=== PATIENT | male | born 1960 | race Caucasian/White ===

== ENCOUNTER 2018-05-16 15:56 | Inpatient (IN) | payer BC ==
[~2018-05-16] VITALS: Ht 180.3 cm; Wt 81.2 kg
[2018-05-16] MEDS ORDERED: IV NORMAL SALINE 1000ML BAG 1,000 ML IV ONE (16:30)
[2018-05-16 16:34] LABS: BASO % 1 % (0-3); EOS # 0.1 x10^3/uL (0.0-0.7); EOS % 1 % (0-3); HEMATOCRIT 44.6 % (39.0-53.0); LYMPH # 3.4 x10^3/uL (1.0-4.8); LYMPH % 42 % (24-48); MEAN CORPUSCULAR HEMOGLOBIN 31 pg (25-35); MEAN CORPUSCULAR HGB CONC 34 g/dL (31-37); MEAN CORPUSCULAR VOLUME 93 fL (79-100); MONO # 0.5 x10^3/uL (0.0-1.1); MONO % 6 % (0-9); NEUT # 4.2 x10^3uL (1.8-7.7); NEUT % 51 % (31-73); PLATELET COUNT 189 x10^3/uL (140-400); RED BLOOD COUNT 4.79 x10^6/uL (4.30-5.70); RED CELL DISTRIBUTION WIDTH 13.3 % (11.5-14.5); WHITE BLOOD COUNT 8.2 x10^3/uL (4.0-11.0)
--- NOTE | 2018-05-16 16:47 | RAD ---
EXAM: Head CT without contrast. HISTORY: Dizziness. Hyperglycemia. Mental status changes. TECHNIQUE: Computed tomographic images of the head were obtained without contrast. *One or more of the following individualized dose reduction techniques were utilized for this examination: 1. Automated exposure control. 2. Adjustment of the mA and/or kV according to patient size. 3. Use of iterative reconstruction technique. COMPARISON: 07/31/2010. FINDINGS: There is no acute or subacute extra-axial or intraparenchymal hemorrhage. There is no mass effect or midline shift. There is no hydrocephalus. There are areas of decreased attenuation within the cerebral white matter, nonspecific and likely related to chronic small vessel disease. The visualized portions of the orbits, paranasal sinuses and mastoid air cells are unremarkable. No suspicious calvarial lesion is seen. IMPRESSION: No acute intercranial finding. Note is made that MRI is more sensitive for acute infarction. Electronically signed by: Shawna Chandler MD (05/16/2018 4:44 PM) [facility]
[2018-05-16 17:05] LABS: CALCIUM 8.5 mg/dL (8.5-10.1); CREATININE 0.8 mg/dL (0.7-1.3); GFR 98.6; POTASSIUM 3.6 mmol/L (3.5-5.1)
[2018-05-16 17:10] LABS: ALBUMIN 3.7 g/dL (3.4-5.0); ALBUMIN/GLOBULIN RATIO 1.1 (1.0-1.7); CREATINE KINASE 70 U/L (39-308); TOTAL BILIRUBIN 0.4 mg/dL (0.2-1.0); TOTAL PROTEIN 7.2 g/dL (6.4-8.2)
[2018-05-16 18:04] LABS: BILIRUBIN,URINE NEGATIVE (NEG); CLARITY,URINE CLEAR; COLOR,URINE YELLOW; NITRITE,URINE NEGATIVE (NEG); PROTEIN,URINE NEGATIVE (NEG-TRACE); UROBILINOGEN,URINE 0.2 mg/dL (0.2 mg/dL)
[2018-05-16 18:12] LABS: BARBITURATES NEG (NEG); BENZODIAZEPINES NEG (NEG); CANNABINOIDS NEG (NEG); COCAINE NEG (NEG); METHADONE NEG (NEG); OPIATES NEG (NEG); PHENCYCLIDINE NEG (NEG)
[2018-05-16 18:15] LABS: AMPHETAMINE/METHAMPHETAMINE NEG (NEG)
--- NOTE | 2018-05-16 18:18 | PHYS DOC ---
Past Medical History Past Medical History: Seizure, Other Additional Past Medical Histor: epilepsy Past Surgical History: Other Additional Past Surgical Histo: left knee surgery x 2 Additional Information: 1 ppd Alcohol Use: Rarely Drug Use: None Adult General Chief Complaint Chief Complaint: DIZZY/LIGHT HEADED HPI HPI Patient is a 58 year old male with history of smoking who presents to the ED today to be evaluated for dizziness and multiple other complaints. Patient has never been seen by PCP for 10 years. He decided today to be seen by Dr. Capps to establish care with him. His blood glucose was checked and was 315 , patient was sent to the ED to be evaluated. Patient himself states he has had dizziness, blurred vision, feeling like he will pass out since yesterday. He states sometimes he feels is confused but is alert and oriented 4 in the ED. Patient was given insulin at the doctor's office. PCP Dr. Capps Review of Systems Review of Systems Constitutional: Denies fever or chills [] Eyes: Denies change in visual acuity, redness, or eye pain [] HENT: Denies nasal congestion or sore throat [] Respiratory: Denies cough or shortness of breath [] Cardiovascular: No additional information not addressed in HPI [] GI: Denies abdominal pain, nausea, vomiting, bloody stools or diarrhea [] : Denies dysuria or hematuria [] Musculoskeletal: Denies back pain or joint pain [] Integument: Denies rash or skin lesions [] Neurologic: Reports Confusion, dizziness. Denies headache, focal weakness or sensory changes [] Endocrine: Hyperglycemia All other systems were reviewed and found to be within normal limits, except as documented in this note. Current Medications Current Medications Current Medications Medications (Trade) Dose Ordered Sig/Bob Start Time Stop Time Status Last Admin Dose Admin Acetaminophen (Tylenol) 650 mg PRN Q4HRS PRN 05/16/18 18:30 05/17/18 18:29 Dextrose (Dextrose 50%-Water Syringe) 12.5 gm PRN Q15MIN PRN 05/16/18 18:30 Insulin Human Lispro (HumaLOG) 0-7 UNITS TIDWMEALS 05/17/18 08:00 Ondansetron HCl (Zofran) 4 mg PRN Q8HRS PRN 05/16/18 18:30 05/17/18 18:29 Sodium Chloride 1,000 ml @ 1,000 mls/hr 1X ONCE 05/16/18 16:30 05/16/18 17:29 DC 05/16/18 16:50 1,000 MLS/HR Allergies Allergies Allergies Coded Allergies Type Severity Reaction Last Updated Verified phenobarbital Allergy Intermediate 05/16/18 Yes Physical Exam Physical Exam Constitutional: Well developed, well nourished, no acute distress, non-toxic appearance. [] HENT: Normocephalic, atraumatic, bilateral external ears normal, oropharynx moist, no oral exudates, nose normal. Moderately decayed teeth. Eyes: PERRLA, EOMI, conjunctiva normal, no discharge. [] Neck: Normal range of motion, no tenderness, supple, no stridor. [] Cardiovascular:Heart rate regular rhythm, no murmur [] Lungs & Thorax: Bilateral breath sounds clear to auscultation [] Abdomen: Bowel sounds normal, soft, no tenderness, no masses, no pulsatile masses. [] Skin: Warm, dry, no erythema, no rash. [] Back: No tenderness, no CVA tenderness. [] Extremities: No tenderness, no cyanosis, no clubbing, ROM intact, no edema. [] Neurologic: Alert and oriented X 4, normal motor function, normal sensory function, no focal deficits noted. Cranial nerves II through XII intact Psychologic: Affect normal, judgement normal, mood normal. [] Current Patient Data Vital Signs Vital Signs Date Time Temp Pulse Resp B/P (MAP) Pulse Ox O2 Delivery O2 Flow Rate FiO2 05/16/18 18:14 46 18 94 05/16/18 16:10 98.2 135/65 (88) Room Air 98.2 Lab Values Laboratory Tests Test 05/16/18 16:15 05/16/18 17:50 White Blood Count 8.2 x10^3/uL (4.0-11.0) Red Blood Count 4.79 x10^6/uL (4.30-5.70) Hemoglobin 15.0 g/dL (13.0-17.5) Hematocrit 44.6 % (39.0-53.0) Mean Corpuscular Volume 93 fL (79-100) Mean Corpuscular Hemoglobin 31 pg (25-35) Mean Corpuscular Hemoglobin Concent 34 g/dL (31-37) Red Cell Distribution Width 13.3 % (11.5-14.5) Platelet Count 189 x10^3/uL (140-400) Neutrophils (%) (Auto) 51 % (31-73) Lymphocytes (%) (Auto) 42 % (24-48) Monocytes (%) (Auto) 6 % (0-9) Eosinophils (%) (Auto) 1 % (0-3) Basophils (%) (Auto) 1 % (0-3) Neutrophils # (Auto) 4.2 x10^3uL (1.8-7.7) Lymphocytes # (Auto) 3.4 x10^3/uL (1.0-4.8) Monocytes # (Auto) 0.5 x10^3/uL (0.0-1.1) Eosinophils # (Auto) 0.1 x10^3/uL (0.0-0.7) Basophils # (Auto) 0.0 x10^3/uL (0.0-0.2) Prothrombin Time 13.0 SEC (11.7-14.0) Prothrombin Time INR 1.0 (0.8-1.1) Sodium Level 136 mmol/L (136-145) Potassium Level 3.6 mmol/L (3.5-5.1) Chloride Level 99 mmol/L (98-107) Carbon Dioxide Level 25 mmol/L (21-32) Anion Gap 12 (6-14) Blood Urea Nitrogen 13 mg/dL (8-26) Creatinine 0.8 mg/dL (0.7-1.3) Estimated GFR (Cockcroft-Gault) 98.6 BUN/Creatinine Ratio 16 (6-20) Glucose Level 261 mg/dL (70-99) H Calcium Level 8.5 mg/dL (8.5-10.1) Magnesium Level 2.0 mg/dL (1.8-2.4) Total Bilirubin 0.4 mg/dL (0.2-1.0) Aspartate Amino Transferase (AST) 13 U/L (15-37) L Alanine Aminotransferase (ALT) 21 U/L (16-63) Alkaline Phosphatase 102 U/L (46-116) Creatine Kinase 70 U/L (39-308) Creatine Kinase MB (Mass) 0.6 ng/mL (0.0-3.6) Creatine Kinase MB Relative Index % (0-4) Troponin I Quantitative < 0.017 ng/mL (0.000-0.055) JE-Pgj-[id number]-Type Natriuretic Peptide 54 pg/mL (0-124) Total Protein 7.2 g/dL (6.4-8.2) Albumin 3.7 g/dL (3.4-5.0) Albumin/Globulin Ratio 1.1 (1.0-1.7) Thyroid Stimulating Hormone (TSH) 1.343 uIU/mL (0.358-3.74) Urine Collection Type Unknown Urine Color Yellow Urine Clarity Clear Urine pH 6.0 Urine Specific [place] 1.015 Urine Protein Negative mg/dL (NEG-TRACE) Urine Glucose (UA) >=1000 mg/dL (NEG) Urine Ketones (Stick) Negative mg/dL (NEG) Urine Blood Negative (NEG) Urine Nitrite Negative (NEG) Urine Bilirubin Negative (NEG) Urine Urobilinogen Dipstick 0.2 mg/dL (0.2 mg/dL) Urine Leukocyte Esterase Negative (NEG) Urine RBC 0 /HPF (0-2) Urine WBC 0 /HPF (0-4) Urine Squamous Epithelial Cells Occ /LPF Urine Bacteria 0 /HPF (0-FEW) Urine Opiates Screen Neg (NEG) Urine Methadone Screen Neg (NEG) Urine Barbiturates Neg (NEG) Urine Phencyclidine Screen Neg (NEG) Urine Amphetamine/Methamphetamine Neg (NEG) Urine Benzodiazepines Screen Neg (NEG) Urine Cocaine Screen Neg (NEG) Urine Cannabinoids Screen Neg (NEG) Urine Ethyl Alcohol Neg (NEG) Laboratory Tests 05/16/18 16:15 Laboratory Tests 05/16/18 16:15 EKG EKG 16:[address] Muniz sinus rhythm heart rate 53 no STEMI[] Radiology/Procedures Radiology/Procedures []PROCEDURE: CT HEAD WO CONTRAST EXAM: Head CT without contrast. HISTORY: Dizziness. Hyperglycemia. Mental status changes. TECHNIQUE: Computed tomographic images of the head were obtained without contrast. *One or more of the following individualized dose reduction techniques were utilized for this examination: 1. Automated exposure control. 2. Adjustment of the mA and/or kV according to patient size. 3. Use of iterative reconstruction technique. COMPARISON: 07/31/2010. FINDINGS: There is no acute or subacute extra-axial or intraparenchymal hemorrhage. There is no mass effect or midline shift. There is no hydrocephalus. There are areas of decreased attenuation within the cerebral white matter, nonspecific and likely related to chronic small vessel disease. The visualized portions of the orbits, paranasal sinuses and mastoid air cells are unremarkable. No suspicious calvarial lesion is seen. IMPRESSION: No acute intercranial finding. Note is made that MRI is more sensitive for acute infarction. Electronically signed by: Shawna Aiken MD (05/16/2018 4:44 PM) [facility] DICTATED and SIGNED BY: SHAWNA AIKEN MD DATE: 05/16/18 1646 Course & Med Decision Making Course & Med Decision Making Pertinent Labs and Imaging studies reviewed. (See chart for details) This is a 58-year-old male patient presenting to the ED today from the doctor's office. Patient went to see her PCP for the first time in the last 10 years. He was noted to be hyperglycemic with blood glucose around 315. He was given insulin at the doctor's office. Patient himself states his had dizziness, feeling like he is going to pass out, and blurred vision since yesterday. EKG is negative, troponin is normal, chest x-ray and CT of the head and negative , CBC with no acute findings, CMP with blood glucose of 261, anion gap is normal. UA with no ketones Consulted with Dr. Garrett who accepted patient for admission. Insulin sliding scale ordered. Dragon Disclaimer Dragon Disclaimer This electronic medical record was generated, in whole or in part, using a voice recognition dictation system. Departure Departure Impression: Primary Impression: Diabetes mellitus Additional Impressions: Dizziness Altered mental status Disposition: ADMITTED INPATIENT Condition: STABLE Referrals: JOSE CHACON MD (PCP) Problem Qualifiers Primary Impression: Diabetes mellitus Diabetes mellitus type: type 2 Diabetes mellitus technician terminal and repeater insulin use: unspecified technician terminal and repeater insulin use status Diabetes mellitus complication status : with unspecified complications Qualified Codes: E11.8 - Type 2 diabetes mellitus with unspecified complications Additional Impressions: Altered mental status Altered mental status type: unspecified Qualified Codes: R41.82 - Altered mental status, unspecified GEREMIASRHEA GONZALEZ May 16, 2018 18:18
[2018-05-16 18:22] LABS: BACTERIA,URINE 0 /HPF (0-FEW); RBC,URINE 0 /HPF (0-2); SQUAMOUS EPITHELIAL CELL,UR OCC /LPF; WBC,URINE 0 /HPF (0-4)
[2018-05-16] MEDS ORDERED: ONDANSETRON PF 4 MG/2 ML VIAL. IV PRN (18:30)
[2018-05-16] MEDS ORDERED: DEXTROSE 50% 25 GM / 50ML DISP.SYRIN. IV PRN ×2 (18:30→22:00)
[2018-05-16] MEDS ORDERED: ACETAMINOPHEN 325 MG TABLET. PO PRN (18:30)
[2018-05-16 19:58] VITALS: BP 106/60
--- NOTE | 2018-05-16 20:11 | RAD ---
Indication:ER PATIENT. DIZZINESS. Hx DIABETES, ASTHMA. TECHNIQUE:Portable AP chest X-ray COMPARISON:None FINDINGS: Heart is normal in size. Prominent bilateral bronchovascular markings. No focal consolidation. No pneumothorax or pleural effusion. Visualized bony thorax within normal limits. IMPRESSION: Findings suggests bronchitis. Electronically signed by: Jason García DO (05/16/2018 8:08 PM) [facility]
--- NOTE | 2018-05-16 21:52 | PDOC1 ---
History and Physical Date of Admission Date of Admission DATE: 05/16/18 TIME: 21:52 Identification/Chief Complaint Chief Complaint SEEN IN ED today to be evaluated for dizziness and multiple other complaints. Patient has never been seen by PCP for [address] Capps to establish care with him. His blood glucose was checked and was 315, patient was sent to the ED to be evaluated. states he has had dizziness, blurred vision, feeling like he will pass out since 05/15. Past Medical History Past Medical History Past Medical History Past Medical History: Seizure, Other Additional Past Medical Histor: epilepsy Past Surgical History: Other Additional Past Surgical Histo: left knee surgery x 2 Additional Information: 1 ppd Alcohol Use: Rarely Drug Use: None fhx diabetes Current Problem List Problem List Problems Medical Problems: (1) Altered mental status Status: Acute (2) Diabetes mellitus Status: Acute (3) Dizziness Status: Acute Current Medications Current Medications Current Medications Sodium Chloride 1,000 ml @ 1,000 mls/hr 1X ONCE IV Last administered on at 16:50; Start 05/16/18 at 16:30; Stop 05/16/18 at 17:29; Status DC Ondansetron HCl (Zofran) 4 mg PRN Q8HRS PRN IV NAUSEA/VOMITING; Start 05/16/18 at 18:30; Stop 05/17/18 at 18:29 Acetaminophen (Tylenol) 650 mg PRN Q4HRS PRN PO FEVER; Start 05/16/18 at 18:30 ; Stop 05/17/18 at 18:29 Insulin Human Lispro (HumaLOG) 0-7 UNITS TIDWMEALS SQ ; Start 05/17/18 at 08:00 Dextrose (Dextrose 50%-Water Syringe) 12.5 gm PRN Q15MIN PRN IV SEE COMMENTS; Start 05/16/18 at 18:30 Allergies Allergies: Coded Allergies: phenobarbital (Verified Allergy, Intermediate, 05/16/18) Vitals Vitals Vital Signs Date Time Temp Pulse Resp B/P (MAP) Pulse Ox O2 Delivery O2 Flow Rate FiO2 05/16/18 19:58 98.0 49 16 106/60 (75) 94 Room Air 98.0 Labs Labs Laboratory Tests Test 05/16/18 16:15 05/16/18 17:50 05/16/18 21:19 White Blood Count 8.2 x10^3/uL (4.0-11.0) Red Blood Count 4.79 x10^6/uL (4.30-5.70) Hemoglobin 15.0 g/dL (13.0-17.5) Hematocrit 44.6 % (39.0-53.0) Mean Corpuscular Volume 93 fL (79-100) Mean Corpuscular Hemoglobin 31 pg (25-35) Mean Corpuscular Hemoglobin Concent 34 g/dL (31-37) Red Cell Distribution Width 13.3 % (11.5-14.5) Platelet Count 189 x10^3/uL (140-400) Neutrophils (%) (Auto) 51 % (31-73) Lymphocytes (%) (Auto) 42 % (24-48) Monocytes (%) (Auto) 6 % (0-9) Eosinophils (%) (Auto) 1 % (0-3) Basophils (%) (Auto) 1 % (0-3) Neutrophils # (Auto) 4.2 x10^3uL (1.8-7.7) Lymphocytes # (Auto) 3.4 x10^3/uL (1.0-4.8) Monocytes # (Auto) 0.5 x10^3/uL (0.0-1.1) Eosinophils # (Auto) 0.1 x10^3/uL (0.0-0.7) Basophils # (Auto) 0.0 x10^3/uL (0.0-0.2) Prothrombin Time 13.0 SEC (11.7-14.0) Prothromb Time International Ratio 1.0 (0.8-1.1) Sodium Level 136 mmol/L (136-145) Potassium Level 3.6 mmol/L (3.5-5.1) Chloride Level 99 mmol/L (98-107) Carbon Dioxide Level 25 mmol/L (21-32) Anion Gap 12 (6-14) Blood Urea Nitrogen 13 mg/dL (8-26) Creatinine 0.8 mg/dL (0.7-1.3) Estimated GFR (Cockcroft-Gault) 98.6 BUN/Creatinine Ratio 16 (6-20) Glucose Level 261 mg/dL (70-99) Calcium Level 8.5 mg/dL (8.5-10.1) Magnesium Level 2.0 mg/dL (1.8-2.4) Total Bilirubin 0.4 mg/dL (0.2-1.0) Aspartate Amino Transf (AST/SGOT) 13 U/L (15-37) Alanine Aminotransferase (ALT/SGPT) 21 U/L (16-63) Alkaline Phosphatase 102 U/L (46-116) Creatine Kinase 70 U/L (39-308) Creatine Kinase MB (Mass) 0.6 ng/mL (0.0-3.6) Creatine Kinase MB Relative Index % (0-4) Troponin I Quantitative < 0.017 ng/mL (0.000-0.055) YB-Qun-D-Type Natriuretic Peptide 54 pg/mL (0-124) Total Protein 7.2 g/dL (6.4-8.2) Albumin 3.7 g/dL (3.4-5.0) Albumin/Globulin Ratio 1.1 (1.0-1.7) Thyroid Stimulating Hormone (TSH) 1.343 uIU/mL (0.358-3.74) Urine Collection Type Unknown Urine Color Yellow Urine Clarity Clear Urine pH 6.0 Urine Specific [place] 1.015 Urine Protein Negative mg/dL (NEG-TRACE) Urine Glucose (UA) >=1000 mg/dL (NEG) Urine Ketones (Stick) Negative mg/dL (NEG) Urine Blood Negative (NEG) Urine Nitrite Negative (NEG) Urine Bilirubin Negative (NEG) Urine Urobilinogen Dipstick 0.2 mg/dL (0.2 mg/dL) Urine Leukocyte Esterase Negative (NEG) Urine RBC 0 /HPF (0-2) Urine WBC 0 /HPF (0-4) Urine Squamous Epithelial Cells Occ /LPF Urine Bacteria 0 /HPF (0-FEW) Urine Opiates Screen Neg (NEG) Urine Methadone Screen Neg (NEG) Urine Barbiturates Neg (NEG) Urine Phencyclidine Screen Neg (NEG) Urine Amphetamine/Methamphetamine Neg (NEG) Urine Benzodiazepines Screen Neg (NEG) Urine Cocaine Screen Neg (NEG) Urine Cannabinoids Screen Neg (NEG) Urine Ethyl Alcohol Neg (NEG) Glucose (Fingerstick) 262 mg/dL (70-99) Laboratory Tests Test 05/16/18 16:15 05/16/18 17:50 05/16/18 21:19 White Blood Count 8.2 x10^3/uL (4.0-11.0) Red Blood Count 4.79 x10^6/uL (4.30-5.70) Hemoglobin 15.0 g/dL (13.0-17.5) Hematocrit 44.6 % (39.0-53.0) Mean Corpuscular Volume 93 fL (79-100) Mean Corpuscular Hemoglobin 31 pg (25-35) Mean Corpuscular Hemoglobin Concent 34 g/dL (31-37) Red Cell Distribution Width 13.3 % (11.5-14.5) Platelet Count 189 x10^3/uL (140-400) Neutrophils (%) (Auto) 51 % (31-73) Lymphocytes (%) (Auto) 42 % (24-48) Monocytes (%) (Auto) 6 % (0-9) Eosinophils (%) (Auto) 1 % (0-3) Basophils (%) (Auto) 1 % (0-3) Neutrophils # (Auto) 4.2 x10^3uL (1.8-7.7) Lymphocytes # (Auto) 3.4 x10^3/uL (1.0-4.8) Monocytes # (Auto) 0.5 x10^3/uL (0.0-1.1) Eosinophils # (Auto) 0.1 x10^3/uL (0.0-0.7) Basophils # (Auto) 0.0 x10^3/uL (0.0-0.2) Prothrombin Time 13.0 SEC (11.7-14.0) Prothromb Time International Ratio 1.0 (0.8-1.1) Sodium Level 136 mmol/L (136-145) Potassium Level 3.6 mmol/L (3.5-5.1) Chloride Level 99 mmol/L (98-107) Carbon Dioxide Level 25 mmol/L (21-32) Anion Gap 12 (6-14) Blood Urea Nitrogen 13 mg/dL (8-26) Creatinine 0.8 mg/dL (0.7-1.3) Estimated GFR (Cockcroft-Gault) 98.6 BUN/Creatinine Ratio 16 (6-20) Glucose Level 261 mg/dL (70-99) Calcium Level 8.5 mg/dL (8.5-10.1) Magnesium Level 2.0 mg/dL (1.8-2.4) Total Bilirubin 0.4 mg/dL (0.2-1.0) Aspartate Amino Transf (AST/SGOT) 13 U/L (15-37) Alanine Aminotransferase (ALT/SGPT) 21 U/L (16-63) Alkaline Phosphatase 102 U/L (46-116) Creatine Kinase 70 U/L (39-308) Creatine Kinase MB (Mass) 0.6 ng/mL (0.0-3.6) Creatine Kinase MB Relative Index % (0-4) Troponin I Quantitative < 0.017 ng/mL (0.000-0.055) PM-Tfw-Y-Type Natriuretic Peptide 54 pg/mL (0-124) Total Protein 7.2 g/dL (6.4-8.2) Albumin 3.7 g/dL (3.4-5.0) Albumin/Globulin Ratio 1.1 (1.0-1.7) Thyroid Stimulating Hormone (TSH) 1.343 uIU/mL (0.358-3.74) Urine Collection Type Unknown Urine Color Yellow Urine Clarity Clear Urine pH 6.0 Urine Specific [place]bur 1.015 Urine Protein Negative mg/dL (NEG-TRACE) Urine Glucose (UA) >=1000 mg/dL (NEG) Urine Ketones (Stick) Negative mg/dL (NEG) Urine Blood Negative (NEG) Urine Nitrite Negative (NEG) Urine Bilirubin Negative (NEG) Urine Urobilinogen Dipstick 0.2 mg/dL (0.2 mg/dL) Urine Leukocyte Esterase Negative (NEG) Urine RBC 0 /HPF (0-2) Urine WBC 0 /HPF (0-4) Urine Squamous Epithelial Cells Occ /LPF Urine Bacteria 0 /HPF (0-FEW) Urine Opiates Screen Neg (NEG) Urine Methadone Screen Neg (NEG) Urine Barbiturates Neg (NEG) Urine Phencyclidine Screen Neg (NEG) Urine Amphetamine/Methamphetamine Neg (NEG) Urine Benzodiazepines Screen Neg (NEG) Urine Cocaine Screen Neg (NEG) Urine Cannabinoids Screen Neg (NEG) Urine Ethyl Alcohol Neg (NEG) Glucose (Fingerstick) 262 mg/dL (70-99) Images Images STATUS: PRE ER ORD. PHYSICIAN: RHEA ARCHULETA APRN REASON: AMS PROCEDURE: CT HEAD WO CONTRAST EXAM: Head CT without contrast. HISTORY: Dizziness. Hyperglycemia. Mental status changes. TECHNIQUE: Computed tomographic images of the head were obtained without contrast. *One or more of the following individualized dose reduction techniques were utilized for this examination: 1. Automated exposure control. 2. Adjustment of the mA and/or kV according to patient size. 3. Use of iterative reconstruction technique. COMPARISON: 07/31/2010. FINDINGS: There is no acute or subacute extra-axial or intraparenchymal hemorrhage. There is no mass effect or midline shift. There is no hydrocephalus. There are areas of decreased attenuation within the cerebral white matter, nonspecific and likely related to chronic small vessel disease. The visualized portions of the orbits, paranasal sinuses and mastoid air cells are unremarkable. No suspicious calvarial lesion is seen. IMPRESSION: No acute intercranial finding. Note is made that MRI is more sensitive for acute infarction. Electronically signed by: Shawna Chandler MD (05/16/2018 4:44 PM) [facility] VTE Prophylaxis Ordered VTE Prophylaxis Devices: Yes VTE Pharmacological Prophylaxi: Yes Assessment/Plan Assessment/Plan impression 1. UNCONTROLLED DIABETES 2. areas of decreased attenuation within the cerebral white matter, nonspecific and likely related to chronic small vessel disease. 3. Near syncope 4. dietary noncompliance 5. poor dentition plan ss insulin rx protocol tele neurology consult neurochecks q 4 hrs mri head 75 min pt care time > 50% face to face exam and record review ZOË SALDAÑA MD May 16, 2018 21:52
--- NOTE | 2018-05-16 22:58 | EKG ---
[facility] [address] [place] [address] Test Date: 2018-05-16 Test Time: 16:06:20 Pat Name: ZOË PERALTA Department: Room: [facility] Gender: M [employer]: : 1960 Requested By: RHEA ARCHULETA Order Number: [id number] Reading MD: Guanaco Buckley Measurements Intervals [place] Rate: 53 P: 34 IN: 132 QRS: 66 QRSD: 96 T: 54 QT: 424 QTc: 400 Interpretive Statements SINUS RHYTHM Electronically Signed On 05-23-2018 11:01:32 GEOPHYSICAL E LOGGER by Guanaco Buckley
[2018-05-16 23:22] VITALS: BP 106/67
[2018-05-16 23:23] VITALS: BP 116/70
[2018-05-16 23:24] VITALS: BP 132/97
[2018-05-17 03:30] VITALS: BP 99/59
[2018-05-17] MEDS ORDERED: VENTOLIN HFA18 GM INH (05:12)
--- NOTE | 2018-05-17 05:13 | NUR ---
The patient, ZOË PERALTA, 58 y/o, M admitted by ZOË SALDAÑA MD, was given written information regarding hospital policies, unit procedures and contact persons. Valuables were checked and pt sent wallet home with girlfriend; Fabiana. No complaints noted at this time. Pt instructed to call for assistance since still with some complaints of dizziness. Pt at this time ambulating with steady gait. Pt states hx of epilepsy however has not had seizure since he was 40 and was taken off seizure medications at age 44. Pt states he is currently a diet controlled diabetic and follows his diabetic diet at home. Pt states the only medication that he takes at home is albuterol inhaler.
[2018-05-17 05:59] LABS: BASO % 1 % (0-3); EOS # 0.1 x10^3/uL (0.0-0.7); EOS % 1 % (0-3); HEMATOCRIT 44.7 % (39.0-53.0); HEMOGLOBIN 14.9 g/dL (13.0-17.5); LYMPH # 3.5 x10^3/uL (1.0-4.8); LYMPH % 48 % (24-48); MEAN CORPUSCULAR HEMOGLOBIN 31 pg (25-35); MEAN CORPUSCULAR HGB CONC 33 g/dL (31-37); MEAN CORPUSCULAR VOLUME 93 fL (79-100); MONO # 0.5 x10^3/uL (0.0-1.1); MONO % 7 % (0-9); NEUT # 3.2 x10^3uL (1.8-7.7); NEUT % 43 % (31-73); PLATELET COUNT 184 x10^3/uL (140-400); RED CELL DISTRIBUTION WIDTH 13.5 % (11.5-14.5); WHITE BLOOD COUNT 7.4 x10^3/uL (4.0-11.0)
[2018-05-17 06:40] LABS: CALCIUM 8.7 mg/dL (8.5-10.1); CREATININE 0.7 mg/dL (0.7-1.3); POTASSIUM 3.9 mmol/L (3.5-5.1)
[2018-05-17 06:55] VITALS: BP 123/59
[2018-05-17] MEDS ORDERED: INSULIN LISPRO 300 UNITS/3 ML INSULN.PEN. SQ SCH (08:00)
[2018-05-17] MEDS: INSULIN LISPRO 300 UNITS/3 ML INSULN.PEN. SQ SCH ×3 (08:51→17:26)
--- NOTE | 2018-05-17 09:13 | PDOC ---
PROGRESS NOTES History of Present Illness History of Present Illness Assessment/Plan Assessment/Plan impression 1. UNCONTROLLED DIABETES 2. areas of decreased attenuation within the cerebral white matter, nonspecific and likely related to chronic small vessel disease. 3. Near syncope 4. dietary noncompliance 5. poor dentition 05/17 c/o polyuria no syncope since admit., MRI HEAD PENDING, BASED ON MY REVIEW OF CT IMAGES, PERSONAL IMPRESSION, NEEDS MRI HEAD plan ss insulin rx protocol add lantus 8 units sq hs tele neurology consult neurochecks q 4 hrs mri head Vitals Vitals Vital Signs Date Time Temp Pulse Resp B/P (MAP) Pulse Ox O2 Delivery O2 Flow Rate FiO2 05/17/18 08:19 Room Air 05/17/18 06:55 97.8 44 17 123/59 (80) 96 97.8 Physical Exam General: Alert, Oriented X3, Cooperative, No acute distress Heart: Regular rate, Normal S1, Normal S2 Lungs: Clear Abdomen: Normal bowel sounds, Soft, No tenderness Extremities: No clubbing, No cyanosis, Normal pulses Skin: No significant lesion Labs LABS EXAM: Head CT without contrast. HISTORY: Dizziness. Hyperglycemia. Mental status changes. TECHNIQUE: Computed tomographic images of the head were obtained without contrast. *One or more of the following individualized dose reduction techniques were utilized for this examination: 1. Automated exposure control. 2. Adjustment of the mA and/or kV according to patient size. 3. Use of iterative reconstruction technique. COMPARISON: 07/31/2010. FINDINGS: There is no acute or subacute extra-axial or intraparenchymal hemorrhage. There is no mass effect or midline shift. There is no hydrocephalus. There are areas of decreased attenuation within the cerebral white matter, nonspecific and likely related to chronic small vessel disease. The visualized portions of the orbits, paranasal sinuses and mastoid air cells are unremarkable. No suspicious calvarial lesion is seen. IMPRESSION: No acute intercranial finding. Note is made that MRI is more sensitive for acute infarction. Electronically signed by: Shawna Chandler MD (05/16/2018 4:44 PM) [facility] DICTATED and SIGNED BY: SHAWNA CHANDLER MD DATE: 05/16/18 1641 Laboratory Tests Test 05/16/18 16:15 05/16/18 17:50 05/16/18 21:19 2/27/19 04:33 White Blood Count 8.2 x10^3/uL (4.0-11.0) 7.4 x10^3/uL (4.0-11.0) Red Blood Count 4.79 x10^6/uL (4.30-5.70) 4.80 x10^6/uL (4.30-5.70) Hemoglobin 15.0 g/dL (13.0-17.5) 14.9 g/dL (13.0-17.5) Hematocrit 44.6 % (39.0-53.0) 44.7 % (39.0-53.0) Mean Corpuscular Volume 93 fL (79-100) 93 fL (79-100) Mean Corpuscular Hemoglobin 31 pg (25-35) 31 pg (25-35) Mean Corpuscular Hemoglobin Concent 34 g/dL (31-37) 33 g/dL (31-37) Red Cell Distribution Width 13.3 % (11.5-14.5) 13.5 % (11.5-14.5) Platelet Count 189 x10^3/uL (140-400) 184 x10^3/uL (140-400) Neutrophils (%) (Auto) 51 % (31-73) 43 % (31-73) Lymphocytes (%) (Auto) 42 % (24-48) 48 % (24-48) Monocytes (%) (Auto) 6 % (0-9) 7 % (0-9) Eosinophils (%) (Auto) 1 % (0-3) 1 % (0-3) Basophils (%) (Auto) 1 % (0-3) 1 % (0-3) Neutrophils # (Auto) 4.2 x10^3uL (1.8-7.7) 3.2 x10^3uL (1.8-7.7) Lymphocytes # (Auto) 3.4 x10^3/uL (1.0-4.8) 3.5 x10^3/uL (1.0-4.8) Monocytes # (Auto) 0.5 x10^3/uL (0.0-1.1) 0.5 x10^3/uL (0.0-1.1) Eosinophils # (Auto) 0.1 x10^3/uL (0.0-0.7) 0.1 x10^3/uL (0.0-0.7) Basophils # (Auto) 0.0 x10^3/uL (0.0-0.2) 0.0 x10^3/uL (0.0-0.2) Prothrombin Time 13.0 SEC (11.7-14.0) Prothromb Time International Ratio 1.0 (0.8-1.1) Sodium Level 136 mmol/L (136-145) 140 mmol/L (136-145) Potassium Level 3.6 mmol/L (3.5-5.1) 3.9 mmol/L (3.5-5.1) Chloride Level 99 mmol/L (98-107) 104 mmol/L (98-107) Carbon Dioxide Level 25 mmol/L (21-32) 24 mmol/L (21-32) Anion Gap 12 (6-14) 12 (6-14) Blood Urea Nitrogen 13 mg/dL (8-26) 11 mg/dL (8-26) Creatinine 0.8 mg/dL (0.7-1.3) 0.7 mg/dL (0.7-1.3) Estimated GFR (Cockcroft-Gault) 98.6 115.0 BUN/Creatinine Ratio 16 (6-20) Glucose Level 261 mg/dL (70-99) 258 mg/dL (70-99) Calcium Level 8.5 mg/dL (8.5-10.1) 8.7 mg/dL (8.5-10.1) Magnesium Level 2.0 mg/dL (1.8-2.4) Total Bilirubin 0.4 mg/dL (0.2-1.0) Aspartate Amino Transf (AST/SGOT) 13 U/L (15-37) Alanine Aminotransferase (ALT/SGPT) 21 U/L (16-63) Alkaline Phosphatase 102 U/L (46-116) Creatine Kinase 70 U/L (39-308) Creatine Kinase MB (Mass) 0.6 ng/mL (0.0-3.6) Creatine Kinase MB Relative Index % (0-4) Troponin I Quantitative < 0.017 ng/mL (0.000-0.055) WA-Ewb-U-Type Natriuretic Peptide 54 pg/mL (0-124) Total Protein 7.2 g/dL (6.4-8.2) Albumin 3.7 g/dL (3.4-5.0) Albumin/Globulin Ratio 1.1 (1.0-1.7) Thyroid Stimulating Hormone (TSH) 1.343 uIU/mL (0.358-3.74) Urine Collection Type Unknown Urine Color Yellow Urine Clarity Clear Urine pH 6.0 Urine Specific [place] 1.015 Urine Protein Negative mg/dL (NEG-TRACE) Urine Glucose (UA) >=1000 mg/dL (NEG) Urine Ketones (Stick) Negative mg/dL (NEG) Urine Blood Negative (NEG) Urine Nitrite Negative (NEG) Urine Bilirubin Negative (NEG) Urine Urobilinogen Dipstick 0.2 mg/dL (0.2 mg/dL) Urine Leukocyte Esterase Negative (NEG) Urine RBC 0 /HPF (0-2) Urine WBC 0 /HPF (0-4) Urine Squamous Epithelial Cells Occ /LPF Urine Bacteria 0 /HPF (0-FEW) Urine Opiates Screen Neg (NEG) Urine Methadone Screen Neg (NEG) Urine Barbiturates Neg (NEG) Urine Phencyclidine Screen Neg (NEG) Urine Amphetamine/Methamphetamine Neg (NEG) Urine Benzodiazepines Screen Neg (NEG) Urine Cocaine Screen Neg (NEG) Urine Cannabinoids Screen Neg (NEG) Urine Ethyl Alcohol Neg (NEG) Glucose (Fingerstick) 262 mg/dL (70-99) Test 05/17/18 06:46 Glucose (Fingerstick) 282 mg/dL (70-99) Assessment and Plan Assessmemt and Plan Problems Medical Problems: (1) Altered mental status Status: Acute (2) Diabetes mellitus Status: Acute (3) Dizziness Status: Acute Comment Review of Relevant I have reviewed the following items denis (where applicable) has been applied. Labs Laboratory Tests Test 05/16/18 16:15 05/16/18 17:50 05/16/18 21:19 05/17/18 04:33 White Blood Count 8.2 x10^3/uL (4.0-11.0) 7.4 x10^3/uL (4.0-11.0) Red Blood Count 4.79 x10^6/uL (4.30-5.70) 4.80 x10^6/uL (4.30-5.70) Hemoglobin 15.0 g/dL (13.0-17.5) 14.9 g/dL (13.0-17.5) Hematocrit 44.6 % (39.0-53.0) 44.7 % (39.0-53.0) Mean Corpuscular Volume 93 fL (79-100) 93 fL (79-100) Mean Corpuscular Hemoglobin 31 pg (25-35) 31 pg (25-35) Mean Corpuscular Hemoglobin Concent 34 g/dL (31-37) 33 g/dL (31-37) Red Cell Distribution Width 13.3 % (11.5-14.5) 13.5 % (11.5-14.5) Platelet Count 189 x10^3/uL (140-400) 184 x10^3/uL (140-400) Neutrophils (%) (Auto) 51 % (31-73) 43 % (31-73) Lymphocytes (%) (Auto) 42 % (24-48) 48 % (24-48) Monocytes (%) (Auto) 6 % (0-9) 7 % (0-9) Eosinophils (%) (Auto) 1 % (0-3) 1 % (0-3) Basophils (%) (Auto) 1 % (0-3) 1 % (0-3) Neutrophils # (Auto) 4.2 x10^3uL (1.8-7.7) 3.2 x10^3uL (1.8-7.7) Lymphocytes # (Auto) 3.4 x10^3/uL (1.0-4.8) 3.5 x10^3/uL (1.0-4.8) Monocytes # (Auto) 0.5 x10^3/uL (0.0-1.1) 0.5 x10^3/uL (0.0-1.1) Eosinophils # (Auto) 0.1 x10^3/uL (0.0-0.7) 0.1 x10^3/uL (0.0-0.7) Basophils # (Auto) 0.0 x10^3/uL (0.0-0.2) 0.0 x10^3/uL (0.0-0.2) Prothrombin Time 13.0 SEC (11.7-14.0) Prothromb Time International Ratio 1.0 (0.8-1.1) Sodium Level 136 mmol/L (136-145) 140 mmol/L (136-145) Potassium Level 3.6 mmol/L (3.5-5.1) 3.9 mmol/L (3.5-5.1) Chloride Level 99 mmol/L (98-107) 104 mmol/L (98-107) Carbon Dioxide Level 25 mmol/L (21-32) 24 mmol/L (21-32) Anion Gap 12 (6-14) 12 (6-14) Blood Urea Nitrogen 13 mg/dL (8-26) 11 mg/dL (8-26) Creatinine 0.8 mg/dL (0.7-1.3) 0.7 mg/dL (0.7-1.3) Estimated GFR (Cockcroft-Gault) 98.6 115.0 BUN/Creatinine Ratio 16 (6-20) Glucose Level 261 mg/dL (70-99) 258 mg/dL (70-99) Calcium Level 8.5 mg/dL (8.5-10.1) 8.7 mg/dL (8.5-10.1) Magnesium Level 2.0 mg/dL (1.8-2.4) Total Bilirubin 0.4 mg/dL (0.2-1.0) Aspartate Amino Transf (AST/SGOT) 13 U/L (15-37) Alanine Aminotransferase (ALT/SGPT) 21 U/L (16-63) Alkaline Phosphatase 102 U/L (46-116) Creatine Kinase 70 U/L (39-308) Creatine Kinase MB (Mass) 0.6 ng/mL (0.0-3.6) Creatine Kinase MB Relative Index % (0-4) Troponin I Quantitative < 0.017 ng/mL (0.000-0.055) LN-Xca-B-Type Natriuretic Peptide 54 pg/mL (0-124) Total Protein 7.2 g/dL (6.4-8.2) Albumin 3.7 g/dL (3.4-5.0) Albumin/Globulin Ratio 1.1 (1.0-1.7) Thyroid Stimulating Hormone (TSH) 1.343 uIU/mL (0.358-3.74) Urine Collection Type Unknown Urine Color Yellow Urine Clarity Clear Urine pH 6.0 Urine Specific [place] 1.015 Urine Protein Negative mg/dL (NEG-TRACE) Urine Glucose (UA) >=1000 mg/dL (NEG) Urine Ketones (Stick) Negative mg/dL (NEG) Urine Blood Negative (NEG) Urine Nitrite Negative (NEG) Urine Bilirubin Negative (NEG) Urine Urobilinogen Dipstick 0.2 mg/dL (0.2 mg/dL) Urine Leukocyte Esterase Negative (NEG) Urine RBC 0 /HPF (0-2) Urine WBC 0 /HPF (0-4) Urine Squamous Epithelial Cells Occ /LPF Urine Bacteria 0 /HPF (0-FEW) Urine Opiates Screen Neg (NEG) Urine Methadone Screen Neg (NEG) Urine Barbiturates Neg (NEG) Urine Phencyclidine Screen Neg (NEG) Urine Amphetamine/Methamphetamine Neg (NEG) Urine Benzodiazepines Screen Neg (NEG) Urine Cocaine Screen Neg (NEG) Urine Cannabinoids Screen Neg (NEG) Urine Ethyl Alcohol Neg (NEG) Glucose (Fingerstick) 262 mg/dL (70-99) Test 05/17/18 06:46 Glucose (Fingerstick) 282 mg/dL (70-99) Laboratory Tests Test 05/16/18 16:15 05/16/18 17:50 05/16/18 21:19 05/17/18 04:33 White Blood Count 8.2 x10^3/uL (4.0-11.0) 7.4 x10^3/uL (4.0-11.0) Red Blood Count 4.79 x10^6/uL (4.30-5.70) 4.80 x10^6/uL (4.30-5.70) Hemoglobin 15.0 g/dL (13.0-17.5) 14.9 g/dL (13.0-17.5) Hematocrit 44.6 % (39.0-53.0) 44.7 % (39.0-53.0) Mean Corpuscular Volume 93 fL (79-100) 93 fL (79-100) Mean Corpuscular Hemoglobin 31 pg (25-35) 31 pg (25-35) Mean Corpuscular Hemoglobin Concent 34 g/dL (31-37) 33 g/dL (31-37) Red Cell Distribution Width 13.3 % (11.5-14.5) 13.5 % (11.5-14.5) Platelet Count 189 x10^3/uL (140-400) 184 x10^3/uL (140-400) Neutrophils (%) (Auto) 51 % (31-73) 43 % (31-73) Lymphocytes (%) (Auto) 42 % (24-48) 48 % (24-48) Monocytes (%) (Auto) 6 % (0-9) 7 % (0-9) Eosinophils (%) (Auto) 1 % (0-3) 1 % (0-3) Basophils (%) (Auto) 1 % (0-3) 1 % (0-3) Neutrophils # (Auto) 4.2 x10^3uL (1.8-7.7) 3.2 x10^3uL (1.8-7.7) Lymphocytes # (Auto) 3.4 x10^3/uL (1.0-4.8) 3.5 x10^3/uL (1.0-4.8) Monocytes # (Auto) 0.5 x10^3/uL (0.0-1.1) 0.5 x10^3/uL (0.0-1.1) Eosinophils # (Auto) 0.1 x10^3/uL (0.0-0.7) 0.1 x10^3/uL (0.0-0.7) Basophils # (Auto) 0.0 x10^3/uL (0.0-0.2) 0.0 x10^3/uL (0.0-0.2) Prothrombin Time 13.0 SEC (11.7-14.0) Prothromb Time International Ratio 1.0 (0.8-1.1) Sodium Level 136 mmol/L (136-145) 140 mmol/L (136-145) Potassium Level 3.6 mmol/L (3.5-5.1) 3.9 mmol/L (3.5-5.1) Chloride Level 99 mmol/L (98-107) 104 mmol/L (98-107) Carbon Dioxide Level 25 mmol/L (21-32) 24 mmol/L (21-32) Anion Gap 12 (6-14) 12 (6-14) Blood Urea Nitrogen 13 mg/dL (8-26) 11 mg/dL (8-26) Creatinine 0.8 mg/dL (0.7-1.3) 0.7 mg/dL (0.7-1.3) Estimated GFR (Cockcroft-Gault) 98.6 115.0 BUN/Creatinine Ratio 16 (6-20) Glucose Level 261 mg/dL (70-99) 258 mg/dL (70-99) Calcium Level 8.5 mg/dL (8.5-10.1) 8.7 mg/dL (8.5-10.1) Magnesium Level 2.0 mg/dL (1.8-2.4) Total Bilirubin 0.4 mg/dL (0.2-1.0) Aspartate Amino Transf (AST/SGOT) 13 U/L (15-37) Alanine Aminotransferase (ALT/SGPT) 21 U/L (16-63) Alkaline Phosphatase 102 U/L (46-116) Creatine Kinase 70 U/L (39-308) Creatine Kinase MB (Mass) 0.6 ng/mL (0.0-3.6) Creatine Kinase MB Relative Index % (0-4) Troponin I Quantitative < 0.017 ng/mL (0.000-0.055) NP-Aat-X-Type Natriuretic Peptide 54 pg/mL (0-124) Total Protein 7.2 g/dL (6.4-8.2) Albumin 3.7 g/dL (3.4-5.0) Albumin/Globulin Ratio 1.1 (1.0-1.7) Thyroid Stimulating Hormone (TSH) 1.343 uIU/mL (0.358-3.74) Urine Collection Type Unknown Urine Color Yellow Urine Clarity Clear Urine pH 6.0 Urine Specific [place] 1.015 Urine Protein Negative mg/dL (NEG-TRACE) Urine Glucose (UA) >=1000 mg/dL (NEG) Urine Ketones (Stick) Negative mg/dL (NEG) Urine Blood Negative (NEG) Urine Nitrite Negative (NEG) Urine Bilirubin Negative (NEG) Urine Urobilinogen Dipstick 0.2 mg/dL (0.2 mg/dL) Urine Leukocyte Esterase Negative (NEG) Urine RBC 0 /HPF (0-2) Urine WBC 0 /HPF (0-4) Urine Squamous Epithelial Cells Occ /LPF Urine Bacteria 0 /HPF (0-FEW) Urine Opiates Screen Neg (NEG) Urine Methadone Screen Neg (NEG) Urine Barbiturates Neg (NEG) Urine Phencyclidine Screen Neg (NEG) Urine Amphetamine/Methamphetamine Neg (NEG) Urine Benzodiazepines Screen Neg (NEG) Urine Cocaine Screen Neg (NEG) Urine Cannabinoids Screen Neg (NEG) Urine Ethyl Alcohol Neg (NEG) Glucose (Fingerstick) 262 mg/dL (70-99) Test 05/17/18 06:46 Glucose (Fingerstick) 282 mg/dL (70-99) Medications Current Medications Sodium Chloride 1,000 ml @ 1,000 mls/hr 1X ONCE IV Last administered on at 16:50; Start 05/16/18 at 16:30; Stop 05/16/18 at 17:29; Status DC Ondansetron HCl (Zofran) 4 mg PRN Q8HRS PRN IV NAUSEA/VOMITING; Start 05/16/18 at 18:30; Stop 05/17/18 at 18:29 Acetaminophen (Tylenol) 650 mg PRN Q4HRS PRN PO FEVER; Start 05/16/18 at 18:30 ; Stop 05/17/18 at 18:29 Insulin Human Lispro (HumaLOG) 0-7 UNITS TIDWMEALS SQ ; Start 05/17/18 at 08:00 ; Stop 05/17/18 at 08:00; Status DC Dextrose (Dextrose 50%-Water Syringe) 12.5 gm PRN Q15MIN PRN IV SEE COMMENTS; Start 05/16/18 at 18:30; Stop 05/16/18 at 22:02; Status DC Insulin Human Lispro (HumaLOG) 0-5 UNITS TIDWMEALS SQ Last administered on 05/17at 08:51; Start 05/17/18 at 08:00 Dextrose (Dextrose 50%-Water Syringe) 12.5 gm PRN Q15MIN PRN IV SEE COMMENTS; Start 05/16/18 at 22:00 Active Scripts Active Reported Ventolin Hfa Inhaler (Albuterol Sulfate) 18 Gm Hfa.aer.ad 2 Puff INH QID Vitals/I & O Vital Sign - Last 24 Hours 05/16/18 05/16/18 05/16/18 05/16/18 16:10 16:44 17:14 17:44 Temp 98.2 98.2 Pulse 54 54 48 44 Resp 20 21 21 22 B/P (MAP) 135/65 (88) Pulse Ox 98 95 97 O2 Delivery Room Air 05/16/18 05/16/18 05/16/18 05/16/18 18:14 19:12 19:58 23:22 Temp 98.0 98.1 98.0 98.1 Pulse 46 49 50 Resp 18 16 20 B/P (MAP) 106/60 (75) 106/67 (80) Pulse Ox 94 94 95 O2 Delivery Room Air Room Air Room Air 05/16/18 05/16/18 05/17/18 05/17/18 23:23 23:24 03:30 06:55 Temp 98.2 97.8 98.2 97.8 Pulse 49 53 46 44 Resp 20 16 17 B/P (MAP) 116/70 (85) 132/97 (109) 99/59 (72) 123/59 (80) Pulse Ox 94 93 93 96 O2 Delivery Room Air Room Air Room Air Room Air 05/17/18 08:19 O2 Delivery Room Air Intake and Output 05/16/18 05/16/18 05/17/18 15:00 23:00 07:00 Intake Total 230 ml Output Total 200 ml Balance 30 ml ZOË SALDAÑA MD May 17, 2018 09:13
[2018-05-17 10:46] VITALS: BP 114/52
--- NOTE | 2018-05-17 14:37 | NUR ---
MRI cancelled d/t piercings that cannot get removed. Pt will follow up with MRI as outpatient once piercings are removed.
[2018-05-17 14:50] VITALS: BP 132/60
--- NOTE | 2018-05-17 14:53 | NUR ---
SW following pt for anticipated dc needs. Chart reviewed. Pt lives at home with significant other. Pt was seen by PT and no skilled needs indicated at this time. Will continue to evaluate needs.
[2018-05-17] MEDS: ALBUTEROL SULFATE 2.5 MG/3 ML NEBU. NEB SCH ×2 (16:27→21:45)
[2018-05-17] MEDS ORDERED: NON FORMULARY ITEM (Albuterol Sulfate (Ventolin Hfa Inhaler) 2 PUFF) INH SCH (17:00)
--- NOTE | 2018-05-17 19:01 | PDOC2 ---
NEUROLOGY CONSULT Date of Admission Date of Admission DATE: 05/17/18 TIME: 18:46 Reason for Consult Reason for Consult: IMPRESSION: Metabolic encephalopathy. Hyperglycemia, glucose level 315. Blurred vision. Syncope. DM. Seizure, Hx. Confusion. Dizziness. RECOMMENDATIONS/PLAN: Control hyperglycemia. Treat medical diseases. ASA 162 mg daily. EEG. Lab: see orders. No MRI due to contraindication of piercing. HISTORY OF THE PRESENT ILLNESS: 58-y-old male patient has not seen PCP for along time stating he knew his glucose level was high but he was on diet and hoped it fixed. He developed symptoms of dizziness, light headiness, confusional episodes and multiple other complaints for about 2 days to come to the ER of [facility] after seen his new PCP and his blood glucose was checked and was 315, so he was sent to the ED to be evaluated. Past Medical History Past Medical History: Seizure, DM? PAST SURGERY HISTORY: Left knee surgery x 2 Allergies Coded Allergies: phenobarbital (Verified Allergy, Intermediate, 05/16/18) MEDICATIONS: Refer to [facility] HISTORY: Non contributory. SOCIAL HISTORY: Lives with his partner before. Denies illicit drug use. He smokes 1 pack of cigarettes a day for many years. He drinks occasionally. REVIEW OF SYSTEMS: Constitutional: No malnutrition, weight loss, cachexia. Head: No traumatic brain or head injury. Skin: No edema, or rash. Ear: No infection. Eyes: No vision loss or color blindness. Nose: No bleeding or purulent discharges. Hearing: No hearing decrease. Neck: No injury. Cardiac: No [place], arrhythmia. Pulmonary: No COPD. GI: No GI ulcer, GI bleeding. Urinary/genital: No dysuria, incontinence, urinary retention. Endocrinologic: Diabetes Mellitus? Skeletomuscular: No muscular atrophy, deformity. Neurological: see HP. Psychiatric: Denies drug use/abuse. Otherwise, not [id number] review of systems. PHYSICAL EXAMINATION: General appearance is in subacute distress. HEENT: Normocephalic and nontraumatic. Eyes, nose, ears, and throat are unremarkable. Neck is supple. No lymphadenopathy. No crepitus. Cardiovascular: S1, S2, regular rate and rhythm. Pulmonary: Clear to auscultation bilaterally. Abdomen: Bowel sounds are positive. Abdomen is soft, nontender, and nondistended. Extremities: No rash, lesions, or edema. No restriction of range of motion NEUROLOGICAL EXAMINATION: Alert Oriented to time, place and person. PERRL. EOMI. CN: no focal findings. Muscle tone: within normal. Muscle strength: 5 DTR: 2 Plantar reflex: Flexor response bilaterally Gait: At baseline normal. Sensory exam: no abnormal findings. No cerebellar signs elicited. F-T-N test fine. Current Medications Current Medications Current Medications Sodium Chloride 1,000 ml @ 1,000 mls/hr 1X ONCE IV Last administered on at 16:50; Start 05/16/18 at 16:30; Stop 05/16/18 at 17:29; Status DC Ondansetron HCl (Zofran) 4 mg PRN Q8HRS PRN IV NAUSEA/VOMITING; Start 05/16/18 at 18:30; Stop 05/17/18 at 18:29; Status DC Acetaminophen (Tylenol) 650 mg PRN Q4HRS PRN PO FEVER; Start 05/16/18 at 18:30 ; Stop 05/17/18 at 18:29; Status DC Insulin Human Lispro (HumaLOG) 0-7 UNITS TIDWMEALS SQ ; Start 05/17/18 at 08:00 ; Stop 05/17/18 at 08:00; Status DC Dextrose (Dextrose 50%-Water Syringe) 12.5 gm PRN Q15MIN PRN IV SEE COMMENTS; Start 05/16/18 at 18:30; Stop 05/16/18 at 22:02; Status DC Insulin Human Lispro (HumaLOG) 0-5 UNITS TIDWMEALS SQ Last administered on 05/17at 17:26; Start 05/17/18 at 08:00 Dextrose (Dextrose 50%-Water Syringe) 12.5 gm PRN Q15MIN PRN IV SEE COMMENTS; Start 05/16/18 at 22:00 Aspirin (Tri Aspirin) 325 mg DAILYWBKFT PO ; Start 05/18/18 at 08:00 Insulin Glargine (Lantus) 8 units QHS SQ ; Start 05/17/18 at 21:00 Non-Formulary Medication (Albuterol Sulfate (Ventolin Hfa Inhaler)) 2 puff QID INH ; Start 05/17/18 at 17:00; Status UNV Albuterol Sulfate (Ventolin Neb Soln) 2.5 mg RTQID NEB Last administered on at 16:27; Start 05/17/18 at 16:00 Active Scripts Active Reported Ventolin Hfa Inhaler (Albuterol Sulfate) 18 Gm Hfa.aer.ad 2 Puff INH QID Allergies Allergies: Allergies Coded Allergies Type Severity Reaction Last Updated Verified phenobarbital Allergy Intermediate 05/16/18 Yes ROS Review of System The patient denies any associated fevers, chills, headache, ear pain, rhinorrhea , sore throat, stiff neck, productive cough, chest pain, shortness of breath, back or flank pain, abdominal pain, nausea, vomiting, diarrhea, constipation, dysuria, rash, numbness, weakness, tingling, incontinence, difficulty ambulating, or diaphoresis. Physical Exam Physical Exam General: Well developed, well nourished, no acute distress, well appearing HEENT: Pupils equally round and reactive to light, EOMI, no discharge, normal conjunctiva Neck: Supple, no nuchal rigidity, no JVD, trachea midline, no tenderness Cardiac: RRR, no murmurs, no gallops, no rubs Chest/Lungs: CTAB, no wheeze, no rhonchi, no crackles Abdomen: soft, non-distended, no guarding, no peritoneal signs, non-tender Back: No tenderness Extremities: no edema, pulses intact, non-tender,capillary refill <3 sec bilateral upper and lower extremities, Neuro: Alert and oriented x 4, no focal deficits, normal speech Vitals Vitals: Vital Signs Date Time Temp Pulse Resp B/P (MAP) Pulse Ox O2 Delivery O2 Flow Rate FiO2 05/17/18 16:27 94 Room Air 05/17/18 14:50 98.1 53 17 132/60 (84) 98.1 Labs Labs Laboratory Tests Test 05/16/18 16:15 05/16/18 17:50 05/16/18 21:19 05/17/18 04:33 White Blood Count 8.2 x10^3/uL (4.0-11.0) 7.4 x10^3/uL (4.0-11.0) Red Blood Count 4.79 x10^6/uL (4.30-5.70) 4.80 x10^6/uL (4.30-5.70) Hemoglobin 15.0 g/dL (13.0-17.5) 14.9 g/dL (13.0-17.5) Hematocrit 44.6 % (39.0-53.0) 44.7 % (39.0-53.0) Mean Corpuscular Volume 93 fL (79-100) 93 fL (79-100) Mean Corpuscular Hemoglobin 31 pg (25-35) 31 pg (25-35) Mean Corpuscular Hemoglobin Concent 34 g/dL (31-37) 33 g/dL (31-37) Red Cell Distribution Width 13.3 % (11.5-14.5) 13.5 % (11.5-14.5) Platelet Count 189 x10^3/uL (140-400) 184 x10^3/uL (140-400) Neutrophils (%) (Auto) 51 % (31-73) 43 % (31-73) Lymphocytes (%) (Auto) 42 % (24-48) 48 % (24-48) Monocytes (%) (Auto) 6 % (0-9) 7 % (0-9) Eosinophils (%) (Auto) 1 % (0-3) 1 % (0-3) Basophils (%) (Auto) 1 % (0-3) 1 % (0-3) Neutrophils # (Auto) 4.2 x10^3uL (1.8-7.7) 3.2 x10^3uL (1.8-7.7) Lymphocytes # (Auto) 3.4 x10^3/uL (1.0-4.8) 3.5 x10^3/uL (1.0-4.8) Monocytes # (Auto) 0.5 x10^3/uL (0.0-1.1) 0.5 x10^3/uL (0.0-1.1) Eosinophils # (Auto) 0.1 x10^3/uL (0.0-0.7) 0.1 x10^3/uL (0.0-0.7) Basophils # (Auto) 0.0 x10^3/uL (0.0-0.2) 0.0 x10^3/uL (0.0-0.2) Prothrombin Time 13.0 SEC (11.7-14.0) Prothromb Time International Ratio 1.0 (0.8-1.1) Sodium Level 136 mmol/L (136-145) 140 mmol/L (136-145) Potassium Level 3.6 mmol/L (3.5-5.1) 3.9 mmol/L (3.5-5.1) Chloride Level 99 mmol/L (98-107) 104 mmol/L (98-107) Carbon Dioxide Level 25 mmol/L (21-32) 24 mmol/L (21-32) Anion Gap 12 (6-14) 12 (6-14) Blood Urea Nitrogen 13 mg/dL (8-26) 11 mg/dL (8-26) Creatinine 0.8 mg/dL (0.7-1.3) 0.7 mg/dL (0.7-1.3) Estimated GFR (Cockcroft-Gault) 98.6 115.0 BUN/Creatinine Ratio 16 (6-20) Glucose Level 261 mg/dL (70-99) 258 mg/dL (70-99) Calcium Level 8.5 mg/dL (8.5-10.1) 8.7 mg/dL (8.5-10.1) Magnesium Level 2.0 mg/dL (1.8-2.4) Total Bilirubin 0.4 mg/dL (0.2-1.0) Aspartate Amino Transf (AST/SGOT) 13 U/L (15-37) Alanine Aminotransferase (ALT/SGPT) 21 U/L (16-63) Alkaline Phosphatase 102 U/L (46-116) Creatine Kinase 70 U/L (39-308) Creatine Kinase MB (Mass) 0.6 ng/mL (0.0-3.6) Creatine Kinase MB Relative Index % (0-4) Troponin I Quantitative < 0.017 ng/mL (0.000-0.055) ZS-Grh-Y-Type Natriuretic Peptide 54 pg/mL (0-124) Total Protein 7.2 g/dL (6.4-8.2) Albumin 3.7 g/dL (3.4-5.0) Albumin/Globulin Ratio 1.1 (1.0-1.7) Thyroid Stimulating Hormone (TSH) 1.343 uIU/mL (0.358-3.74) Urine Collection Type Unknown Urine Color Yellow Urine Clarity Clear Urine pH 6.0 Urine Specific [place] 1.015 Urine Protein Negative mg/dL (NEG-TRACE) Urine Glucose (UA) >=1000 mg/dL (NEG) Urine Ketones (Stick) Negative mg/dL (NEG) Urine Blood Negative (NEG) Urine Nitrite Negative (NEG) Urine Bilirubin Negative (NEG) Urine Urobilinogen Dipstick 0.2 mg/dL (0.2 mg/dL) Urine Leukocyte Esterase Negative (NEG) Urine RBC 0 /HPF (0-2) Urine WBC 0 /HPF (0-4) Urine Squamous Epithelial Cells Occ /LPF Urine Bacteria 0 /HPF (0-FEW) Urine Opiates Screen Neg (NEG) Urine Methadone Screen Neg (NEG) Urine Barbiturates Neg (NEG) Urine Phencyclidine Screen Neg (NEG) Urine Amphetamine/Methamphetamine Neg (NEG) Urine Benzodiazepines Screen Neg (NEG) Urine Cocaine Screen Neg (NEG) Urine Cannabinoids Screen Neg (NEG) Urine Ethyl Alcohol Neg (NEG) Glucose (Fingerstick) 262 mg/dL (70-99) Test 05/17/18 06:46 05/17/18 11:59 05/17/18 16:54 Glucose (Fingerstick) 282 mg/dL (70-99) 251 mg/dL (70-99) 199 mg/dL (70-99) Laboratory Tests Test 05/16/18 21:19 05/17/18 04:33 05/17/18 06:46 05/17/18 11:59 Glucose (Fingerstick) 262 mg/dL (70-99) 282 mg/dL (70-99) 251 mg/dL (70-99) White Blood Count 7.4 x10^3/uL (4.0-11.0) Red Blood Count 4.80 x10^6/uL (4.30-5.70) Hemoglobin 14.9 g/dL (13.0-17.5) Hematocrit 44.7 % (39.0-53.0) Mean Corpuscular Volume 93 fL (79-100) Mean Corpuscular Hemoglobin 31 pg (25-35) Mean Corpuscular Hemoglobin Concent 33 g/dL (31-37) Red Cell Distribution Width 13.5 % (11.5-14.5) Platelet Count 184 x10^3/uL (140-400) Neutrophils (%) (Auto) 43 % (31-73) Lymphocytes (%) (Auto) 48 % (24-48) Monocytes (%) (Auto) 7 % (0-9) Eosinophils (%) (Auto) 1 % (0-3) Basophils (%) (Auto) 1 % (0-3) Neutrophils # (Auto) 3.2 x10^3uL (1.8-7.7) Lymphocytes # (Auto) 3.5 x10^3/uL (1.0-4.8) Monocytes # (Auto) 0.5 x10^3/uL (0.0-1.1) Eosinophils # (Auto) 0.1 x10^3/uL (0.0-0.7) Basophils # (Auto) 0.0 x10^3/uL (0.0-0.2) Sodium Level 140 mmol/L (136-145) Potassium Level 3.9 mmol/L (3.5-5.1) Chloride Level 104 mmol/L (98-107) Carbon Dioxide Level 24 mmol/L (21-32) Anion Gap 12 (6-14) Blood Urea Nitrogen 11 mg/dL (8-26) Creatinine 0.7 mg/dL (0.7-1.3) Estimated GFR (Cockcroft-Gault) 115.0 Glucose Level 258 mg/dL (70-99) Calcium Level 8.7 mg/dL (8.5-10.1) Test 05/17/18 16:54 Glucose (Fingerstick) 199 mg/dL (70-99) FREDERIC HEIN MD May 17, 2018 19:01
[2018-05-17 19:30] VITALS: BP 129/55
[2018-05-17] MEDS: INSULIN GLARGINE 300 UNITS/3 ML INSULN.PEN. SQ SCH (20:36)
[2018-05-17 23:32] VITALS: BP 111/60
[2018-05-18 02:11] LABS: HEMOGLOBIN A1C 10.7 % (4.8-5.6)
[2018-05-18 02:30] LABS: CHOLESTEROL/HDL RATIO 7.6
[2018-05-18 03:22] VITALS: BP 131/59
[2018-05-18 07:15] VITALS: BP 119/60
[2018-05-18] MEDS ORDERED: ASPIRIN 325 MG TABLET PO SCH (08:00)
[2018-05-18] MEDS: ALBUTEROL SULFATE 2.5 MG/3 ML NEBU. NEB SCH ×4 (08:00→20:06)
--- NOTE | 2018-05-18 08:03 | RAD ---
Carotid doppler ultrasound History: Near syncope Multiple grayscale, color, and duplex spectral analysis waveform sonographic images were acquired of the carotid, subclavian, and vertebral arteries. Comparison: None Findings: RIGHT: PSV cm/sec EDV cm/sec Common carotid artery 83 14 Maximal internal carotid artery 153 42 External carotid artery 295 Vertebral artery 50 ICA/CCA ratio 1.84 LEFT: PSV cm/sec EDV cm/sec Common carotid artery 120 27 Maximum internal carotid artery 116 38 External carotid artery 160 Vertebral artery 58 ICA/CCA ratio 0.97 Velocities used to determine stenosis are known to correlate with NASCET angiographic criteria. There is antegrade flow in the bilateral vertebral arteries. There is moderate scattered plaque bilaterally involving the common carotid arteries as well as proximal external and internal carotid arteries. Impression: 1. There is moderate plaque bilaterally. Velocity elevation of the internal carotid arteries bilaterally may be seen with 50-69% luminal diameter reduction. There is no evidence of a hemodynamically significant stenosis of the internal carotid arteries. Electronically signed by: Diego Sexton MD (05/18/2018 8:00 AM) [id number]
[2018-05-18] MEDS: INSULIN LISPRO 300 UNITS/3 ML INSULN.PEN. SQ SCH ×3 (09:42→18:15)
--- NOTE | 2018-05-18 10:11 | CARD ---
MR#: [id number] Date of Study: 05/18/2018 Ordering Physician: ZOË SALDAÑA, Referring Physician: ZOË SALDAÑA, Tech: Nora Abarca CATHLEEN APPROVED REPORT EXAM: Two-dimensional and M-mode echocardiogram with Doppler and color Doppler. Other Information Quality : GoodHR: 45bpm Rhythm : Bradycardia INDICATION Arrhythmia 2D DIMENSIONS RVDd3.5 (2.9-3.5cm)Left Atrium(2D)3.4 (1.6-4.0cm) IVSd1.0 (0.7-1.1cm)Aortic Root(2D)3.4 (2.0-3.7cm) LVDd4.8 (3.9-5.9cm)LVOT Diameter1.9 (1.8-2.4cm) PWd1.1 (0.7-1.1cm)LVDs3.2 (2.5-4.0cm) FS (%) 34.6 %SV69.8 ml LVEF(%)63.6 (>50%) M-Mode DIMENSIONS Left Atrium(MM)3.60 (2.5-4.0cm)Aortic Root3.50 (2.2-3.7cm) Aortic Valve AoV Peak Baron.178.4cm/sAoV VTI44.2cm AO Peak GR.12.7mmHgLVOT Peak Baron.129.3cm/s AO Mean GR.7mmHgAVA (VMAX)2.13cm2 WENCESLAO (VTI)2.10cm2 Mitral Valve MV E Kmfimecx270.3cm/sMV DECEL EUGN750bi MV A Sxafxgic45.6cm/sE/A Ratio1.5 MV A Pmztftcx958kj Pulmonary Valve PV Peak Jwruydue219.8cm/s Tricuspid Valve TR P. Xmomsudg746ga/sRAP DGQOJCZS68bqNa TR Peak Gr.68rkBgMUKZ33kuRg Pulmonary Vein S1 Mftmbnpo42.7cm/sD2 Xvendpen11.3cm/s LEFT VENTRICLE The left ventricle is normal size. There is normal left ventricular wall thickness. The left ventricu lar systolic function is normal and the ejection fraction is within normal range. The Ejection Fracti on is 55-60%. There is normal LV segmental wall motion. Transmitral Doppler flow pattern is Grade I-a bnormal relaxation pattern. RIGHT VENTRICLE The right ventricle is borderline dilated. There is normal right ventricular wall thickness. The righ t ventricular systolic function is normal. ATRIA The left atrium size is normal. The right atrium size is normal. The interatrial septum is intact wit h no evidence for an atrial septal defect or patent foramen ovale as noted on 2-D or Doppler imaging. AORTIC VALVE The aortic valve is calcified but opens well. Doppler and Color Flow revealed no significant aortic r egurgitation. There is no significant aortic valvular stenosis. MITRAL VALVE The mitral valve is normal in structure and function. There is no evidence of mitral valve prolapse. There is no mitral valve stenosis. Doppler and Color-flow revealed trace mitral regurgitation. TRICUSPID VALVE The tricuspid valve is normal in structure and function. Doppler and Color Flow revealed trace tricus pid regurgitation. The PA pressure was estimated at 34 mmHg. There is no tricuspid valve prolapse or vegetation. There is no tricuspid valve stenosis. PULMONIC VALVE Doppler and Color Flow revealed no pulmonic valvular regurgitation. There is no pulmonic valvular angélica nosis. GREAT VESSELS The aortic root is normal in size. The ascending aorta is normal in size. The IVC is dilated and reynold apses <50% with inspiration. PERICARDIAL EFFUSION There is no evidence of significant pericardial effusion. Critical Notification Critical Value: No <Conclusion> The left ventricular systolic function is normal and the ejection fraction is within normal range. Th e Ejection Fraction is 55-60%. There is normal LV segmental wall motion. Signed by : David Yusuf, Electronically Approved : 05/18/2018 10:10:44
--- NOTE | 2018-05-18 10:40 | PDOC2 ---
CARDIAC CONSULT DATE OF CONSULT Date of Consult DATE: 05/18/18 TIME: 10:29 REASON FOR CONSULT Reason for Consult: Bradycardia, and near syncope REFERRING PHYSICIAN Referring Physician: Fullbright SOURCE Source: Chart review, Patient HISTORY OF PRESENT ILLNESS HISTORY OF PRESENT ILLNESS This is a pleasant 58 yo male admitted for complains of dizziness and palpitations. Reports that he was driving on Tuesday and he had to taffy puller because he was having palpitations, some mid chest pressure, and dizziness. At some point he had blurred vision like he was going to pass out. The peak of his episode lasted about 5 minutes but total event was 15 minutes. At that time he also felt a little confused. His Girlfriend drove the rest of the way to home. The next day his girlfriend went to her PCP and he came along and was inquiring about his episode the other day and his V/S was checked and noted that his HR was slow and also noted that his BG was very high and was told to go to ED. Few days prior to Tuesday's event he was having dizziness and some palpitations but brief. He has never had this problem before but did have syncopal episode remotely about 20 yrs ago but this was associated with seizures and actually had bowel and bladder incontinence associated with that. Denies any routine medications except for albuterol for his asthma/COPD. With this constellation of symptoms, no unilateral weakness, vertigo, nausea, vomiting, diarrhea, no exertional CP nor FLORES. He has been having frequent urination. He has known DM2 from about 20 yrs ago and treated this with diet. No hx of VTE, arrhythmias or CAD. His HR was in the 40s and he was sitting up on bed without any symptoms as I was communicating with him. PAST MEDICAL HISTORY Cardiovascular: No pertinent hx Pulmonary: Asthma, COPD CENTRAL NERVOUS SYSTEM: Seizure GI: No pertinent hx Heme/Onc: No pertinent hx Hepatobiliary: No pertinent hx Psych: No pertinent hx Musculoskeletal: Osteoarthritis Rheumatologic: No pertinent hx Infectious disease: No pertinent hx ENT: No pertinent hx Renal/: No pertinent hx Endocrine: Diabetes (2) PAST SURGICAL HISTORY Past Surgical History: Arthroscopy FAMILY HISTORY Family History: Diabetes (grandmother), Heart Disease SOCIAL HISTORY Smoke: <1 pack per day ALCOHOL: occassional Drugs: None Lives: Friends (girlfriend) CURRENT MEDICATIONS CURRENT MEDICATIONS Current Medications Medications (Trade) Dose Ordered Sig/Bob Route PRN Reason Start Time Stop Time Status Last Admin Dose Admin Aspirin (Tri Aspirin) 325 mg DAILYWBKFT PO 05/18/18 08:00 05/18/18 09:31 Insulin Glargine (Lantus) 8 units QHS SQ 05/17/18 21:00 05/17/18 20:36 Albuterol Sulfate (Ventolin Neb Soln) 2.5 mg RTQID NEB 05/17/18 16:00 05/17/18 21:45 ALLERGIES ALLERGIES: Coded Allergies: phenobarbital (Verified Allergy, Intermediate, 05/16/18) ROS Review of System 14 point ROS evaluated with pertinent positives noted per HPI PHYSICAL EXAM General: Alert, Oriented X3, Cooperative, No acute distress HEENT: Atraumatic, Mucous membr. moist/pink Lungs: Clear to auscultation, Normal air movement Heart: Regular rate (SB), Normal S1, Normal S2, No murmurs Abdomen: Soft, No tenderness Extremities: No cyanosis, No edema Skin: No breakdown, No significant lesion Neuro: Normal speech, Sensation intact Psych/Mental Status: Mental status NL, Mood NL MUSCULOSKELETAL: Osteoarthritic changes both hands VITALS VITALS Vital Signs Date Time Temp Pulse Resp B/P (MAP) Pulse Ox O2 Delivery O2 Flow Rate FiO2 05/18/18 07:15 98.4 45 18 119/60 (79) 95 Room Air 98.4 LABS Lab: Laboratory Tests Test 05/17/18 11:59 05/17/18 16:54 05/17/18 20:01 05/18/18 07:15 Glucose (Fingerstick) 251 mg/dL (70-99) 199 mg/dL (70-99) 231 mg/dL (70-99) 190 mg/dL (70-99) ECHOCARDIOGRAM ECHOCARDIOGRAM <Conclusion> The left ventricular systolic function is normal and the ejection fraction is within normal range. The Ejection Fraction is 55-60%. There is normal LV segmental wall motion. DATE: 05/18/18 1010 ASSESSMENT/PLAN ASSESSMENT/PLAN 1. Presyncope: EF and WM nml. Multifactorial as noted below 2. Sinus bradycardia with likely chronotropic incompetence 3. Palpitations: no recorded tachy episodes so far overnight 4. Moderated carotid artery disease 5. Metabolic encephalopathy with potential hypoperfusion episode. 6. Uncontrolled DM2 with polyuria: A1C 10.7 7. Tobaccoism 8. Hx of seizure/asthma/COPD Recommendations 1. ambulated in hallway with speed walking in hallway around [facility] [place] [facility] at rest mid40s then after 5 rounds around station HR went up only highest at 59. May need a PPM. 2. MRI pending and was planned to be done as an outpt as his nipple rings need to be removed. Neurology following 3. DM2 regimen per PCP. Start on low dose ECASA and 40 mg of lipitor. 5. Dietitian consult. Smoking cessation 6. BP controlled, No AV andie blocking agents SARI ALONSO APRN May 18, 2018 10:40
--- NOTE | 2018-05-18 10:40 | PDOC ---
PROGRESS NOTES History of Present Illness History of Present Illness Assessment/Plan Assessment/Plan impression 1. UNCONTROLLED DIABETES persists 2. areas of decreased attenuation within the cerebral white matter, nonspecific and likely related to chronic small vessel disease. 3. Near syncope 4. dietary noncompliance 5. poor dentition 6. Metabolic encephalopathy. 7. Blurred vision. 8. Syncope. 9. Seizure, Hx. 10. Confusion. 11. Dizziness. 05/17 c/o polyuria no syncope since admit., MRI HEAD PENDING, BASED ON MY REVIEW OF CT IMAGES, PERSONAL IMPRESSION, NEEDS MRI HEAD 05/18 dizzy at times eeg wnl plan ss insulin rx protocol add lantus 8 units sq hs tele neurology consult neurochecks q 4 hrs mri head cardiology consult add glipizide 5 mg po q am Vitals Vitals Vital Signs Date Time Temp Pulse Resp B/P (MAP) Pulse Ox O2 Delivery O2 Flow Rate FiO2 05/18/18 07:15 98.4 45 18 119/60 (79) 95 Room Air 98.4 Physical Exam General: Alert, Oriented X3, Cooperative, No acute distress Heart: Regular rate, Normal S1, Normal S2 Lungs: Clear Abdomen: Normal bowel sounds, Soft, No tenderness Extremities: No clubbing, No cyanosis, Normal pulses Skin: No significant lesion Labs LABS LEFT VENTRICLE The left ventricle is normal size. There is normal left ventricular wall thickness. The left ventricular systolic function is normal and the ejection fraction is within normal range. The Ejection Fraction is 55-60%. There is normal LV segmental wall motion. Transmitral Doppler flow pattern is Grade I- abnormal relaxation pattern. RIGHT VENTRICLE The right ventricle is borderline dilated. There is normal right ventricular wall thickness. The right ventricular systolic function is normal. ATRIA The left atrium size is normal. The right atrium size is normal. The interatrial septum is intact with no evidence for an atrial septal defect or patent foramen ovale as noted on 2-D or Doppler imaging. AORTIC VALVE The aortic valve is calcified but opens well. Doppler and Color Flow revealed no significant aortic regurgitation. There is no significant aortic valvular stenosis. MITRAL VALVE The mitral valve is normal in structure and function. There is no evidence of mitral valve prolapse. There is no mitral valve stenosis. Doppler and Color- flow revealed trace mitral regurgitation. TRICUSPID VALVE The tricuspid valve is normal in structure and function. Doppler and Color Flow revealed trace tricuspid regurgitation. The PA pressure was estimated at 34 mmHg. There is no tricuspid valve prolapse or vegetation. There is no tricuspid valve stenosis. PULMONIC VALVE Doppler and Color Flow revealed no pulmonic valvular regurgitation. There is no pulmonic valvular stenosis. GREAT VESSELS The aortic root is normal in size. The ascending aorta is normal in size. The IVC is dilated and collapses <50% with inspiration. PERICARDIAL EFFUSION There is no evidence of significant pericardial effusion. Critical Notification Critical Value: No <Conclusion> The left ventricular systolic function is normal and the ejection fraction is within normal range. The Ejection Fraction is 55-60%. There is normal LV segmental wall motion. Signed by : Cheli Guerra, Electronically Approved : 05/18/2018 10:10:44 DICTATED and SIGNED BY: CHELI GUERRA MD Laboratory Tests Test 05/17/18 11:59 05/17/18 16:54 05/17/18 20:01 05/18/18 07:15 Glucose (Fingerstick) 251 mg/dL (70-99) 199 mg/dL (70-99) 231 mg/dL (70-99) 190 mg/dL (70-99) Assessment and Plan Assessmemt and Plan Problems Medical Problems: (1) Altered mental status Status: Acute (2) Diabetes mellitus Status: Acute (3) Dizziness Status: Acute Comment Review of Relevant I have reviewed the following items denis (where applicable) has been applied. Labs Laboratory Tests Test 05/16/18 16:15 05/16/18 17:50 05/16/18 21:19 05/17/18 04:33 White Blood Count 8.2 x10^3/uL (4.0-11.0) 7.4 x10^3/uL (4.0-11.0) Red Blood Count 4.79 x10^6/uL (4.30-5.70) 4.80 x10^6/uL (4.30-5.70) Hemoglobin 15.0 g/dL (13.0-17.5) 14.9 g/dL (13.0-17.5) Hematocrit 44.6 % (39.0-53.0) 44.7 % (39.0-53.0) Mean Corpuscular Volume 93 fL (79-100) 93 fL (79-100) Mean Corpuscular Hemoglobin 31 pg (25-35) 31 pg (25-35) Mean Corpuscular Hemoglobin Concent 34 g/dL (31-37) 33 g/dL (31-37) Red Cell Distribution Width 13.3 % (11.5-14.5) 13.5 % (11.5-14.5) Platelet Count 189 x10^3/uL (140-400) 184 x10^3/uL (140-400) Neutrophils (%) (Auto) 51 % (31-73) 43 % (31-73) Lymphocytes (%) (Auto) 42 % (24-48) 48 % (24-48) Monocytes (%) (Auto) 6 % (0-9) 7 % (0-9) Eosinophils (%) (Auto) 1 % (0-3) 1 % (0-3) Basophils (%) (Auto) 1 % (0-3) 1 % (0-3) Neutrophils # (Auto) 4.2 x10^3uL (1.8-7.7) 3.2 x10^3uL (1.8-7.7) Lymphocytes # (Auto) 3.4 x10^3/uL (1.0-4.8) 3.5 x10^3/uL (1.0-4.8) Monocytes # (Auto) 0.5 x10^3/uL (0.0-1.1) 0.5 x10^3/uL (0.0-1.1) Eosinophils # (Auto) 0.1 x10^3/uL (0.0-0.7) 0.1 x10^3/uL (0.0-0.7) Basophils # (Auto) 0.0 x10^3/uL (0.0-0.2) 0.0 x10^3/uL (0.0-0.2) Prothrombin Time 13.0 SEC (11.7-14.0) Prothromb Time International Ratio 1.0 (0.8-1.1) Sodium Level 136 mmol/L (136-145) 140 mmol/L (136-145) Potassium Level 3.6 mmol/L (3.5-5.1) 3.9 mmol/L (3.5-5.1) Chloride Level 99 mmol/L (98-107) 104 mmol/L (98-107) Carbon Dioxide Level 25 mmol/L (21-32) 24 mmol/L (21-32) Anion Gap 12 (6-14) 12 (6-14) Blood Urea Nitrogen 13 mg/dL (8-26) 11 mg/dL (8-26) Creatinine 0.8 mg/dL (0.7-1.3) 0.7 mg/dL (0.7-1.3) Estimated GFR (Cockcroft-Gault) 98.6 115.0 BUN/Creatinine Ratio 16 (6-20) Glucose Level 261 mg/dL (70-99) 258 mg/dL (70-99) Hemoglobin A1c 10.7 % (4.8-5.6) Calcium Level 8.5 mg/dL (8.5-10.1) 8.7 mg/dL (8.5-10.1) Magnesium Level 2.0 mg/dL (1.8-2.4) Total Bilirubin 0.4 mg/dL (0.2-1.0) Aspartate Amino Transf (AST/SGOT) 13 U/L (15-37) Alanine Aminotransferase (ALT/SGPT) 21 U/L (16-63) Alkaline Phosphatase 102 U/L (46-116) Creatine Kinase 70 U/L (39-308) Creatine Kinase MB (Mass) 0.6 ng/mL (0.0-3.6) Creatine Kinase MB Relative Index % (0-4) Troponin I Quantitative < 0.017 ng/mL (0.000-0.055) RV-Bnx-X-Type Natriuretic Peptide 54 pg/mL (0-124) Total Protein 7.2 g/dL (6.4-8.2) Albumin 3.7 g/dL (3.4-5.0) Albumin/Globulin Ratio 1.1 (1.0-1.7) Thyroid Stimulating Hormone (TSH) 1.343 uIU/mL (0.358-3.74) Urine Collection Type Unknown Urine Color Yellow Urine Clarity Clear Urine pH 6.0 Urine Specific [place] 1.015 Urine Protein Negative mg/dL (NEG-TRACE) Urine Glucose (UA) >=1000 mg/dL (NEG) Urine Ketones (Stick) Negative mg/dL (NEG) Urine Blood Negative (NEG) Urine Nitrite Negative (NEG) Urine Bilirubin Negative (NEG) Urine Urobilinogen Dipstick 0.2 mg/dL (0.2 mg/dL) Urine Leukocyte Esterase Negative (NEG) Urine RBC 0 /HPF (0-2) Urine WBC 0 /HPF (0-4) Urine Squamous Epithelial Cells Occ /LPF Urine Bacteria 0 /HPF (0-FEW) Urine Opiates Screen Neg (NEG) Urine Methadone Screen Neg (NEG) Urine Barbiturates Neg (NEG) Urine Phencyclidine Screen Neg (NEG) Urine Amphetamine/Methamphetamine Neg (NEG) Urine Benzodiazepines Screen Neg (NEG) Urine Cocaine Screen Neg (NEG) Urine Cannabinoids Screen Neg (NEG) Urine Ethyl Alcohol Neg (NEG) Glucose (Fingerstick) 262 mg/dL (70-99) Triglycerides Level 204 mg/dL (0-150) Cholesterol Level 212 mg/dL (0-200) LDL Cholesterol, Calculated 143 mg/dL (0-100) VLDL Cholesterol, Calculated 41 mg/dL (0-40) Non-HDL Cholesterol Calculated 184 mg/dL (0-129) HDL Cholesterol 28 mg/dL (40-60) Cholesterol/HDL Ratio 7.6 Test 05/17/18 06:46 05/17/18 11:59 05/17/18 16:54 05/17/18 20:01 Glucose (Fingerstick) 282 mg/dL (70-99) 251 mg/dL (70-99) 199 mg/dL (70-99) 231 mg/dL (70-99) Test 05/18/18 07:15 Glucose (Fingerstick) 190 mg/dL (70-99) Laboratory Tests Test 05/17/18 11:59 05/17/18 16:54 05/17/18 20:01 05/18/18 07:15 Glucose (Fingerstick) 251 mg/dL (70-99) 199 mg/dL (70-99) 231 mg/dL (70-99) 190 mg/dL (70-99) Medications Current Medications Sodium Chloride 1,000 ml @ 1,000 mls/hr 1X ONCE IV Last administered on at 16:50; Start 05/16/18 at 16:30; Stop 05/16/18 at 17:29; Status DC Ondansetron HCl (Zofran) 4 mg PRN Q8HRS PRN IV NAUSEA/VOMITING; Start 05/16/18 at 18:30; Stop 05/17/18 at 18:29; Status DC Acetaminophen (Tylenol) 650 mg PRN Q4HRS PRN PO FEVER; Start 05/16/18 at 18:30 ; Stop 05/17/18 at 18:29; Status DC Insulin Human Lispro (HumaLOG) 0-7 UNITS TIDWMEALS SQ ; Start 05/17/18 at 08:00 ; Stop 05/17/18 at 08:00; Status DC Dextrose (Dextrose 50%-Water Syringe) 12.5 gm PRN Q15MIN PRN IV SEE COMMENTS; Start 05/16/18 at 18:30; Stop 05/16/18 at 22:02; Status DC Insulin Human Lispro (HumaLOG) 0-5 UNITS TIDWMEALS SQ Last administered on 05/18at 09:42; Start 05/17/18 at 08:00 Dextrose (Dextrose 50%-Water Syringe) 12.5 gm PRN Q15MIN PRN IV SEE COMMENTS; Start 05/16/18 at 22:00 Aspirin (Tri Aspirin) 325 mg DAILYWBKFT PO Last administered on 05/18/18at 09: 31; Start 05/18/18 at 08:00 Insulin Glargine (Lantus) 8 units QHS SQ Last administered on 05/17/18at 20:36; Start 05/17/18 at 21:00 Non-Formulary Medication (Albuterol Sulfate (Ventolin Hfa Inhaler)) 2 puff QID INH ; Start 05/17/18 at 17:00; Status UNV Albuterol Sulfate (Ventolin Neb Soln) 2.5 mg RTQID NEB Last administered on at 21:45; Start 05/17/18 at 16:00 Active Scripts Active Reported Ventolin Hfa Inhaler (Albuterol Sulfate) 18 Gm Hfa.aer.ad 2 Puff INH QID Vitals/I & O Vital Sign - Last 24 Hours 05/17/18 05/17/18 05/17/18 05/17/18 10:46 14:50 16:27 19:30 Temp 98.1 98.1 98.1 98.1 98.1 98.1 Pulse 42 53 49 Resp 16 17 20 B/P (MAP) 114/52 (72) 132/60 (84) 129/55 (79) Pulse Ox 95 97 94 97 O2 Delivery Room Air Room Air Room Air Room Air 05/17/18 05/17/18 05/17/18 05/18/18 20:00 21:45 23:32 03:22 Temp 98.2 98.2 98.2 98.2 Pulse 55 51 Resp 18 18 B/P (MAP) 111/60 (77) 131/59 (83) Pulse Ox 97 96 96 O2 Delivery Room Air Room Air Room Air Room Air 05/18/18 07:15 Temp 98.4 98.4 Pulse 45 Resp 18 B/P (MAP) 119/60 (79) Pulse Ox 95 O2 Delivery Room Air Intake and Output 05/17/18 05/17/18 05/18/18 14:59 22:59 06:59 Intake Total 1140 ml 650 ml 950 ml Balance 1140 ml 650 ml 950 ml ZOË SALDAÑA MD May 18, 2018 10:40
[2018-05-18 11:15] VITALS: BP_SYST 121; BP_SYST 140; BP_SYST 142; BP_DIAS 60; BP_DIAS 70; BP_DIAS 79
--- NOTE | 2018-05-18 12:55 | EEG ---
DATE OF SERVICE: 05/18/2018 ELECTROENCEPHALOGRAM NUMBER: [id number]. OBJECTIVE: This is a 58-year-old male patient with history of seizure. EEG was requested in the past. He has some syncopal or seizure-like episodes this time so EEG was requested to help rule out seizure. METHODS: Twenty electrodes were applied according to the international 10-20 electrode placement system. EKG monitoring, hyperventilation, intermittent photic stimulation, monopolar and bipolar montages are routinely utilized. The record was obtained on a digital system with video monitoring. FINDINGS: 1. Background: The patient was recorded in the awake and drowsy states. The overall background amplitude is 10-20 microvolts. A posterior dominant rhythm of 8 Hz is observed. 2. Abnormalities: No specific epileptiform discharge or electrographic seizure is seen. No focal or diffuse slowing. 3. Activation: Hyperventilation was performed with good efforts and normal response. Intermittent photic stimulation was performed with photic driving. No specific epileptiform discharge or electrographic seizure induced by hyperventilation or intermittent photic stimulation. Photoparoxysmal response noted. IMPRESSION: This EEG is a borderline study for the awake, drowsy and sleep states. No focal, lateralizing, specific epileptiform discharge or electrographic seizure is seen. Photoparoxysmal response noted. FREDERIC HEIN MD DR: ISHAAN/elizabeth JOB#: [id number] / [id number] KAT
[2018-05-18] MEDS ORDERED: glipiZIDE ER 2.5 MG TAB.ER.24 PO SCH (14:00)
--- NOTE | 2018-05-18 14:02 | PDOC3 ---
Discharge Summary Date of Admission: May 16, 2018 Date of Discharge: May 18, 2018 Follow-Up: 3-5 days Admitting Diagnosis comment: discharge dx Assessment/Plan impression 1. UNCONTROLLED DIABETES persists 2. areas of decreased attenuation within the cerebral white matter, nonspecific and likely related to chronic small vessel disease. 3. Near syncope 4. dietary noncompliance 5. poor dentition 6. Metabolic encephalopathy. 7. Blurred vision. 8. Syncope. 9. Seizure, Hx. 10. Confusion. 11. Dizziness. 05/17 c/o polyuria no syncope since admit., MRI HEAD PENDING, BASED ON MY REVIEW OF CT IMAGES, PERSONAL IMPRESSION, NEEDS MRI HEAD 05/18 dizzy at times eeg wnl demands discharge today due to hospital cost d/c planning 35 min plan ss insulin rx protocol add lantus 8 units sq hs tele neurology consult neurochecks q 4 hrs mri head cardiology consult add glipizide 5 mg po q am Vitals Vitals Vital Signs Date Time Temp Pulse Resp B/P (MAP) Pulse Ox O2 Delivery O2 Flow Rate FiO2 05/18/18 07:15 98.4 45 18 119/60 (79) 95 Room Air 98.4 Physical Exam General: Alert, Oriented X3, Cooperative, No acute distress Heart: Regular rate, Normal S1, Normal S2 Lungs: Clear Abdomen: Normal bowel sounds, Soft, No tenderness Extremities: No clubbing, No cyanosis, Normal pulses Skin: No significant lesion Labs LABS LEFT VENTRICLE The left ventricle is normal size. There is normal left ventricular wall thickness. The left ventricular systolic function is normal and the ejection fraction is within normal range. The Ejection Fraction is 55-60%. There is normal LV segmental wall motion. Transmitral Doppler flow pattern is Grade I- abnormal relaxation pattern. RIGHT VENTRICLE The right ventricle is borderline dilated. There is normal right ventricular wall thickness. The right ventricular systolic function is normal. ATRIA The left atrium size is normal. The right atrium size is normal. The interatrial septum is intact with no evidence for an atrial septal defect or patent foramen ovale as noted on 2-D or Doppler imaging. AORTIC VALVE The aortic valve is calcified but opens well. Doppler and Color Flow revealed no significant aortic regurgitation. There is no significant aortic valvular stenosis. MITRAL VALVE The mitral valve is normal in structure and function. There is no evidence of mitral valve prolapse. There is no mitral valve stenosis. Doppler and Color- flow revealed trace mitral regurgitation. TRICUSPID VALVE The tricuspid valve is normal in structure and function. Doppler and Color Flow revealed trace tricuspid regurgitation. The PA pressure was estimated at 34 mmHg. There is no tricuspid valve prolapse or vegetation. There is no tricuspid valve stenosis. PULMONIC VALVE Doppler and Color Flow revealed no pulmonic valvular regurgitation. There is no pulmonic valvular stenosis. GREAT VESSELS The aortic root is normal in size. The ascending aorta is normal in size. The IVC is dilated and collapses <50% with inspiration. PERICARDIAL EFFUSION There is no evidence of significant pericardial effusion. Critical Notification Critical Value: No <Conclusion> The left ventricular systolic function is normal and the ejection fraction is within normal range. The Ejection Fraction is 55-60%. There is normal LV segmental wall motion. Signed by : David Yusuf, Electronically Approved : 05/18/2018 10:10:44 FINAL DIAGNOSIS Problems Medical Problems: (1) Altered mental status Status: Acute (2) Diabetes mellitus Status: Acute (3) Dizziness Status: Acute Brief Hospital Course Mr. Brunner is a 58 old [sex] who presented with [ uncontrolled diabetes] CONDITION AT DISCHARGE: Improved Discharge Medications Current Medications Sodium Chloride 1,000 ml @ 1,000 mls/hr 1X ONCE IV Last administered on at 16:50; Start 05/16/18 at 16:30; Stop 05/16/18 at 17:29; Status DC Ondansetron HCl (Zofran) 4 mg PRN Q8HRS PRN IV NAUSEA/VOMITING; Start 05/16/18 at 18:30; Stop 05/17/18 at 18:29; Status DC Acetaminophen (Tylenol) 650 mg PRN Q4HRS PRN PO FEVER; Start 05/16/18 at 18:30 ; Stop 05/17/18 at 18:29; Status DC Insulin Human Lispro (HumaLOG) 0-7 UNITS TIDWMEALS SQ ; Start 05/17/18 at 08:00 ; Stop 05/17/18 at 08:00; Status DC Dextrose (Dextrose 50%-Water Syringe) 12.5 gm PRN Q15MIN PRN IV SEE COMMENTS; Start 05/16/18 at 18:30; Stop 05/16/18 at 22:02; Status DC Insulin Human Lispro (HumaLOG) 0-5 UNITS TIDWMEALS SQ Last administered on 05/18at 12:31; Start 05/17/18 at 08:00 Dextrose (Dextrose 50%-Water Syringe) 12.5 gm PRN Q15MIN PRN IV SEE COMMENTS; Start 05/16/18 at 22:00 Aspirin (Tri Aspirin) 325 mg DAILYWBKFT PO Last administered on 05/18/18at 09: 31; Start 05/18/18 at 08:00 Insulin Glargine (Lantus) 8 units QHS SQ Last administered on 05/17/18at 20:36; Start 05/17/18 at 21:00 Non-Formulary Medication (Albuterol Sulfate (Ventolin Hfa Inhaler)) 2 puff QID INH ; Start 05/17/18 at 17:00; Status UNV Albuterol Sulfate (Ventolin Neb Soln) 2.5 mg RTQID NEB Last administered on at 12:01; Start 05/17/18 at 16:00 Atorvastatin Calcium (Lipitor) 40 mg QHS PO ; Start 05/18/18 at 21:00 Aspirin (Ecotrin) 81 mg DAILYWBKFT PO ; Start 05/19/18 at 08:00 Glipizide (Glucotrol Er) 5 mg DAILY08 PO ; Start 05/18/18 at 14:00 Active Scripts Active Reported Ventolin Hfa Inhaler (Albuterol Sulfate) 18 Gm Hfa.aer.ad 2 Puff INH QID Vital Signs Vital Signs Date Time Temp Pulse Resp B/P (MAP) Pulse Ox O2 Delivery O2 Flow Rate FiO2 05/18/18 12:02 94 Room Air 05/18/18 11:15 47 140/79 (99) 05/18/18 11:15 98.1 18 98.1 Labs Laboratory Tests Test 05/16/18 16:15 05/16/18 17:50 05/16/18 21:19 05/17/18 04:33 White Blood Count 8.2 x10^3/uL (4.0-11.0) 7.4 x10^3/uL (4.0-11.0) Red Blood Count 4.79 x10^6/uL (4.30-5.70) 4.80 x10^6/uL (4.30-5.70) Hemoglobin 15.0 g/dL (13.0-17.5) 14.9 g/dL (13.0-17.5) Hematocrit 44.6 % (39.0-53.0) 44.7 % (39.0-53.0) Mean Corpuscular Volume 93 fL (79-100) 93 fL (79-100) Mean Corpuscular Hemoglobin 31 pg (25-35) 31 pg (25-35) Mean Corpuscular Hemoglobin Concent 34 g/dL (31-37) 33 g/dL (31-37) Red Cell Distribution Width 13.3 % (11.5-14.5) 13.5 % (11.5-14.5) Platelet Count 189 x10^3/uL (140-400) 184 x10^3/uL (140-400) Neutrophils (%) (Auto) 51 % (31-73) 43 % (31-73) Lymphocytes (%) (Auto) 42 % (24-48) 48 % (24-48) Monocytes (%) (Auto) 6 % (0-9) 7 % (0-9) Eosinophils (%) (Auto) 1 % (0-3) 1 % (0-3) Basophils (%) (Auto) 1 % (0-3) 1 % (0-3) Neutrophils # (Auto) 4.2 x10^3uL (1.8-7.7) 3.2 x10^3uL (1.8-7.7) Lymphocytes # (Auto) 3.4 x10^3/uL (1.0-4.8) 3.5 x10^3/uL (1.0-4.8) Monocytes # (Auto) 0.5 x10^3/uL (0.0-1.1) 0.5 x10^3/uL (0.0-1.1) Eosinophils # (Auto) 0.1 x10^3/uL (0.0-0.7) 0.1 x10^3/uL (0.0-0.7) Basophils # (Auto) 0.0 x10^3/uL (0.0-0.2) 0.0 x10^3/uL (0.0-0.2) Prothrombin Time 13.0 SEC (11.7-14.0) Prothromb Time International Ratio 1.0 (0.8-1.1) Sodium Level 136 mmol/L (136-145) 140 mmol/L (136-145) Potassium Level 3.6 mmol/L (3.5-5.1) 3.9 mmol/L (3.5-5.1) Chloride Level 99 mmol/L (98-107) 104 mmol/L (98-107) Carbon Dioxide Level 25 mmol/L (21-32) 24 mmol/L (21-32) Anion Gap 12 (6-14) 12 (6-14) Blood Urea Nitrogen 13 mg/dL (8-26) 11 mg/dL (8-26) Creatinine 0.8 mg/dL (0.7-1.3) 0.7 mg/dL (0.7-1.3) Estimated GFR (Cockcroft-Gault) 98.6 115.0 BUN/Creatinine Ratio 16 (6-20) Glucose Level 261 mg/dL (70-99) 258 mg/dL (70-99) Hemoglobin A1c 10.7 % (4.8-5.6) Calcium Level 8.5 mg/dL (8.5-10.1) 8.7 mg/dL (8.5-10.1) Magnesium Level 2.0 mg/dL (1.8-2.4) Total Bilirubin 0.4 mg/dL (0.2-1.0) Aspartate Amino Transf (AST/SGOT) 13 U/L (15-37) Alanine Aminotransferase (ALT/SGPT) 21 U/L (16-63) Alkaline Phosphatase 102 U/L (46-116) Creatine Kinase 70 U/L (39-308) Creatine Kinase MB (Mass) 0.6 ng/mL (0.0-3.6) Creatine Kinase MB Relative Index % (0-4) Troponin I Quantitative < 0.017 ng/mL (0.000-0.055) FO-[id number]-Type Natriuretic Peptide 54 pg/mL (0-124) Total Protein 7.2 g/dL (6.4-8.2) Albumin 3.7 g/dL (3.4-5.0) Albumin/Globulin Ratio 1.1 (1.0-1.7) Thyroid Stimulating Hormone (TSH) 1.343 uIU/mL (0.358-3.74) Urine Collection Type Unknown Urine Color Yellow Urine Clarity Clear Urine pH 6.0 Urine Specific [place] 1.015 Urine Protein Negative mg/dL (NEG-TRACE) Urine Glucose (UA) >=1000 mg/dL (NEG) Urine Ketones (Stick) Negative mg/dL (NEG) Urine Blood Negative (NEG) Urine Nitrite Negative (NEG) Urine Bilirubin Negative (NEG) Urine Urobilinogen Dipstick 0.2 mg/dL (0.2 mg/dL) Urine Leukocyte Esterase Negative (NEG) Urine RBC 0 /HPF (0-2) Urine WBC 0 /HPF (0-4) Urine Squamous Epithelial Cells Occ /LPF Urine Bacteria 0 /HPF (0-FEW) Urine Opiates Screen Neg (NEG) Urine Methadone Screen Neg (NEG) Urine Barbiturates Neg (NEG) Urine Phencyclidine Screen Neg (NEG) Urine Amphetamine/Methamphetamine Neg (NEG) Urine Benzodiazepines Screen Neg (NEG) Urine Cocaine Screen Neg (NEG) Urine Cannabinoids Screen Neg (NEG) Urine Ethyl Alcohol Neg (NEG) Glucose (Fingerstick) 262 mg/dL (70-99) Triglycerides Level 204 mg/dL (0-150) Cholesterol Level 212 mg/dL (0-200) LDL Cholesterol, Calculated 143 mg/dL (0-100) VLDL Cholesterol, Calculated 41 mg/dL (0-40) Non-HDL Cholesterol Calculated 184 mg/dL (0-129) HDL Cholesterol 28 mg/dL (40-60) Cholesterol/HDL Ratio 7.6 Test 05/17/18 06:46 05/17/18 11:59 05/17/18 16:54 05/17/18 20:01 Glucose (Fingerstick) 282 mg/dL (70-99) 251 mg/dL (70-99) 199 mg/dL (70-99) 231 mg/dL (70-99) Test 05/18/18 07:15 05/18/18 11:35 Glucose (Fingerstick) 190 mg/dL (70-99) 203 mg/dL (70-99) Laboratory Tests Test 05/17/18 16:54 05/17/18 20:01 05/18/18 07:15 05/18/18 11:35 Glucose (Fingerstick) 199 mg/dL (70-99) 231 mg/dL (70-99) 190 mg/dL (70-99) 203 mg/dL (70-99) Allergies Allergies Coded Allergies Type Severity Reaction Last Updated Verified phenobarbital Allergy Intermediate 05/16/18 Yes Disposition/Orders: D/C to Home Patient Instructions d/c planning 35 min ZOË SALDAÑA MD May 18, 2018 14:02
[2018-05-18] MEDS ORDERED: INSU100I13 SQ (14:04)
[2018-05-18] MEDS ORDERED: ASPI-612 PO (14:04)
[2018-05-18] MEDS ORDERED: ATOR40TA59 PO (14:04)
[2018-05-18] MEDS ORDERED: GLIP2.5T4 PO (14:04)
--- NOTE | 2018-05-18 14:04 | DISCH ---
DISCHARGE INSTRUCTIONS Condition on Discharge Condition on Discharge: Stable Activity After Discharge Activity Instructions for Disc: Resume previous activity Lifting Instructions after Dis: No heavy lifting, No pulling or pushing Exercise Instruction after Dis: Walk 10 min, 3 x per day Driving Instructions after Dis: Do not drive today Diet after Discharge Diet after Discharge: Diabetic No Calorie Level Contacting the DRMigel after DC Call your doctor for: If your condition worsens ZOË SALDAÑA MD May 18, 2018 14:04
[2018-05-18 15:15] VITALS: BP 118/81
--- NOTE | 2018-05-18 15:24 | PDOC ---
PROGRESS NOTES Assessment Assessment Metabolic encephalopathy. Hyperglycemia, glucose level 315. Blurred vision. Syncope. DM. Seizure, Hx. Bilateral carotid A stenosis, 50-69%. Confusion. Dizziness. RECOMMENDATIONS/PLAN: Control hyperglycemia. Treat medical diseases. ASA 325 mg daily. Lipitor HS. Patient declined Vascular Surgery consultation. No MRI due to contraindication of piercing. EEG on 05/18/18: Normal. HISTORY OF THE PRESENT ILLNESS: 58-y-old male patient has not seen PCP for along time stating he knew his glucose level was high but he was on diet and hoped it fixed. He developed symptoms of dizziness, light headiness, confusional episodes and multiple other complaints for about 2 days to come to the ER of [facility] after seen his new PCP and his blood glucose was checked and was 315, so he was sent to the ED to be evaluated. Past Medical History Past Medical History: Seizure, DM? PAST SURGERY HISTORY: Left knee surgery x 2 Allergies Coded Allergies: phenobarbital (Verified Allergy, Intermediate, 05/16/18) MEDICATIONS: Refer to [facility] FAMILY HISTORY: Non contributory. SOCIAL HISTORY: Lives with his partner before. Denies illicit drug use. He smokes 1 pack of cigarettes a day for many years. He drinks occasionally. REVIEW OF SYSTEMS: Constitutional: No malnutrition, weight loss, cachexia. Head: No traumatic brain or head injury. Skin: No edema, or rash. Ear: No infection. Eyes: No vision loss or color blindness. Nose: No bleeding or purulent discharges. Hearing: No hearing decrease. Neck: No injury. Cardiac: No WA, arrhythmia. Pulmonary: No COPD. GI: No GI ulcer, GI bleeding. Urinary/genital: No dysuria, incontinence, urinary retention. Endocrinologic: Diabetes Mellitus? Skeletomuscular: No muscular atrophy, deformity. Neurological: see HP. Psychiatric: Denies drug use/abuse. Otherwise, not [id number] review of systems. PHYSICAL EXAMINATION: General appearance is in subacute distress. HEENT: Normocephalic and nontraumatic. Eyes, nose, ears, and throat are unremarkable. Neck is supple. No lymphadenopathy. No crepitus. Cardiovascular: S1, S2, regular rate and rhythm. Pulmonary: Clear to auscultation bilaterally. Abdomen: Bowel sounds are positive. Abdomen is soft, nontender, and nondistended. Extremities: No rash, lesions, or edema. No restriction of range of motion NEUROLOGICAL EXAMINATION: Alert Oriented to time, place and person. PERRL. EOMI. CN: no focal findings. Muscle tone: within normal. Muscle strength: 5 DTR: 2 Plantar reflex: Flexor response bilaterally Gait: At baseline normal. Sensory exam: no abnormal findings. No cerebellar signs elicited. F-T-N test fine. Objective Objective Vital Signs Date Time Temp Pulse Resp B/P (MAP) Pulse Ox O2 Delivery O2 Flow Rate FiO2 05/18/18 14:53 98 Room Air 05/18/18 11:15 47 140/79 (99) 05/18/18 11:15 98.1 18 98.1 Intake and Output 05/18/18 06:59 Intake Total 2740 ml Balance 2740 ml Intake Oral 2740 ml # Voids 4 Vitals Signs Vitals VS - Last 72 Hours, by Label Date Time Temp Pulse Resp B/P (MAP) Pulse Ox O2 Delivery O2 Flow Rate FiO2 05/18/18 14:53 98 Room Air 05/18/18 12:02 94 Room Air 05/18/18 11:15 47 140/79 (99) 05/18/18 11:15 98.1 42 18 121/60 (80) 94 Room Air 98.1 05/18/18 11:15 43 142/70 (94) 05/18/18 08:00 Room Air 05/18/18 07:15 98.4 45 18 119/60 (79) 95 Room Air 98.4 05/18/18 03:22 98.2 51 18 131/59 (83) 96 Room Air 98.2 05/17/18 23:32 98.2 55 18 111/60 (77) 96 Room Air 98.2 05/17/18 21:45 97 Room Air 05/17/18 20:00 Room Air 05/17/18 19:30 98.1 49 20 129/55 (79) 97 Room Air 98.1 05/17/18 16:27 94 Room Air 05/17/18 14:50 98.1 53 17 132/60 (84) 97 Room Air 98.1 05/17/18 10:46 98.1 42 16 114/52 (72) 95 Room Air 98.1 05/17/18 08:19 Room Air Laboratory Laboratory Laboratory Tests Test 05/17/18 16:54 05/17/18 20:01 05/18/18 07:15 05/18/18 11:35 Glucose (Fingerstick) 199 mg/dL (70-99) 231 mg/dL (70-99) 190 mg/dL (70-99) 203 mg/dL (70-99) Medication Medications Current Medications Albuterol Sulfate (Ventolin Neb Soln) 2.5 mg RTQID NEB Last administered on at 14:52; Start 05/17/18 at 16:00 Aspirin (Tri Aspirin) 325 mg DAILYWBKFT PO Last administered on 05/18/18at 09: 31; Start 05/18/18 at 08:00 Aspirin (Ecotrin) 81 mg DAILYWBKFT PO ; Start 05/19/18 at 08:00 Atorvastatin Calcium (Lipitor) 40 mg QHS PO ; Start 05/18/18 at 21:00 Glipizide (Glucotrol Er) 5 mg DAILY08 PO ; Start 05/18/18 at 14:00 Insulin Glargine (Lantus) 8 units QHS SQ Last administered on 05/17/18at 20:36; Start 05/17/18 at 21:00 Non-Formulary Medication (Albuterol Sulfate (Ventolin Hfa Inhaler)) 2 puff QID INH ; Start 05/17/18 at 17:00; Status UNV Comment Review of Relevant I have reviewed the following items denis (where applicable) has been applied. FREDERIC HEIN MD May 18, 2018 15:24
[2018-05-18 19:20] VITALS: BP 123/57
--- NOTE | 2018-05-18 19:32 | NUR ---
Patient has discharge orders today, clarified with Cardiology service, CHRIS Gongora at 1600. This nurse was instructed that patient will be seen by Service Engine Repairer before going home, paged Cardio ordnance truck installation supervisor at 1850, awaiting call back.
--- NOTE | 2018-05-18 20:26 | NUR ---
This nurse spoke to Dr. Barnett and he stated pt is ok to discharge. Pt is to follow up with cardiology within 1-2 weeks.
[2018-05-18] MEDS ORDERED: ATORVASTATIN CALCIUM 40 MG TABLET. PO SCH (21:00)
[2018-05-18] MEDS: INSULIN GLARGINE 300 UNITS/3 ML INSULN.PEN. SQ SCH (21:07)
--- NOTE | 2018-05-18 22:02 | NUR ---
Discharge Note: ZOË PERALTA [address] Discharge instructions and discharge home medications reviewed with Patient and a copy given. All questions have been answered and understanding verbalized. The following instructions and handouts were given: medications, diet, activity and symptoms worsening. Discontinued lines and drains: Discontinued 20g left antecubital peripheral IV with no complications, direct pressure and bandage applied and tip was intact. Patient discharged to home with girlfriend via ambulation to emergency entrance with AYSE Ortiz.
[2018-05-19] MEDS ORDERED: ASPIRIN 325 MG TABLET PO SCH (08:00)
[2018-05-19] MEDS ORDERED: ASPIRIN ENTERIC COATED 81 MG TABLET.DR. PO SCH (08:00)
== END 2018-05-18 21:05 | disposition home or self-care (01) | DRG 637 ==
LOC: ER 15:56 → 6 SOUTH 17:52
PROVIDERS: ADMIT Family Medicine; ATTEND Family Medicine
DX: E11.65 Type 2 diabetes mellitus with hyperglycemia (principal); G93.41 Metabolic encephalopathy; F17.210 Nicotine dependence, cigarettes, uncomplicated; G40.909 Epilepsy, unspecified, not intractable, without status epilepticus; R00.1 Bradycardia, unspecified; J44.9 Chronic obstructive pulmonary disease, unspecified; M19.90 Unspecified osteoarthritis, unspecified site; R55 Syncope and collapse; Z79.82 Long term (current) use of aspirin; Z83.3 Family history of diabetes mellitus; Z91.11 Patient's noncompliance with dietary regimen; Z88.8 Allergy status to other drugs, medicaments and biological substances
CPT/HCPCS: 36415; 70450; 71045; 80048; 80053; 80061; 80307; 81001; 82553; 82962; 83036; 83735; 83880; 84443; 84484; 85025; 85610; 93005; 93306; 93880; 94640; 95816; 96360; 99406; J1815; J7030; J7613; 99285-25

== ENCOUNTER → 2018-06-05 | Outpatient (CLI) | payer BC ==
[2018-05-18 19:20] VITALS: BP 123/57
[~2018-06-05] MED LIST: ASPI-612 PO; ATOR40TA59 PO; GLIP2.5T4 PO; INSU100I13 SQ; REGADENOSON 0.4 MG/5 ML DISP.SYRIN. IV ONE; VENTOLIN HFA18 GM INH
--- NOTE | 2018-06-05 15:36 | RAD ---
MR#: [id number] Date of Study: 06/05/2018 Ordering Physician: CHELI YUSUF, Referring Physician: MONIE ARRIETA Tech: YRN Jones, ARRDank (R) (N) APPROVED REPORT Test Type: Pharmacological Stress Nurse/Tech: Francesca Quintanilla R.N. Test Indications: mini stroke Cardiac History: copd, smoker, dm Medications: see ehr Medical History: see ehr Resting ECG: sb Resting Heart Rate: 50 bpm Resting Blood Pressure: 109/58mmHg Pretest Chest Pain: No chest pain Nurse/Tech Notes lungs dimininshed but clear, HR regular Consent: The procedure was explained to the patient in lay terms. Informed consent was witnessed. Luis eout was entered into [employer]. History and Stress Test performed by [facility]. Details Pharmacologic stress testing was performed using 0.4mg per 5ml of regadenoson given intravenously ove r 7-10 seconds. Stress Symptoms Pt failed to complete treadmill because of dizziness. No chest pain or symptoms.Dyspnea Dizziness POST EXERCISE Reason for Termination: Infusion complete Target HR: No Max HR: 104 bpm Max Blood Pressure: 118/59mmHg Chest Pain: No. Arrhythmia: No. ST Change: No. No evidence of stress induced EKG changes. Imaging Protocol IMAGE PROTOCOL: Rest Tc-99m/stress Tc-99m 1 day Rest: Stress: Viability: Radiopharm.Tc99m [id number] Sestamibi Dose11.8mCi 32mCi Img Date 06/05/2018 06/05/2018 Inj-Img Oybj76vta. 60min. Rest Admin Site:IV - Right AntecubitalAdministrator:[facility] Stress Admin Site: IV - Right AntecubitalAdministrator: [facility] STRESS DATA End Diast. Vol.103.0mlLVEDV index BSA51.0ml End Syst. Vol.42.0mlLVESV index BSA20.0ml Myocardial Ftsl883.0gEject. Oegzyfxv06.0% Stress Scores Regional WT2.00Summed WT22.00 Regional WM0.00Summed WM6.00 The rest and stress images show normal perfusion, normal contraction and thickening. LV Perf. Quant 17 Seg. SSS0.00 17 Seg. SRS2.00 17 Seg. SDS0.00 Stress Defect Extent (% LAD)0.00Rest Defect Extent (% LAD)6.90Rev. Defect Extent (% LAD)0.00 Stress Defect Extent (% LCX) 0.00Rest Defect Extent (% LCX)0.00Rev. Defect Extent (% LCX)0.00 Stress Defect Extent (% RCA)0.00Rest Defect Extent (% RCA)0.00Rev. Defect Extent (% RCA)0.00 Stress Defect Extent (% JETT)0.00Rest Defect Extent (% JETT)2.40Rev. Defect Extent (% JETT)0.00 Other Information Quality:Average Risk Assessment: Low Risk Conclusion 1. No evidence of EKG changes with stress testing. 2. Normal perfusion at stress/rest. 3. Low risk study. 4. EF > 60%. Signed by : Cheli Yusuf, Electronically Approved : 06/05/2018 15:35:29
== END | disposition home or self-care (01) ==
LOC: NM 08:16
PROVIDERS: ATTEND Internal Medicine Cardiovascular Disease
DX: G45.9 Transient cerebral ischemic attack, unspecified (principal); R06.00 Dyspnea, unspecified; J44.9 Chronic obstructive pulmonary disease, unspecified; E11.9 Type 2 diabetes mellitus without complications; Z87.891 Personal history of nicotine dependence
CPT/HCPCS: 78452; 93017; 96374; A9500; J2785

== ENCOUNTER 2018-06-16 00:15 | Emergency (ER) | payer BC ==
[~2018-06-16] VITALS: Ht 180.3 cm; Wt 86.2 kg
[~2018-06-16 00:15] MED LIST changes: -REGADENOSON 0.4 MG/5 ML DISP.SYRIN. IV ONE
[2018-06-16 01:25] LABS: BASO # 0.1 x10^3/uL (0.0-0.2); BASO % 1 % (0-3); EOS # 0.1 x10^3/uL (0.0-0.7); EOS % 1 % (0-3); HEMATOCRIT 43.8 % (39.0-53.0); HEMOGLOBIN 14.6 g/dL (13.0-17.5); LYMPH # 3.7 x10^3/uL (1.0-4.8); LYMPH % 42 % (24-48); MEAN CORPUSCULAR HEMOGLOBIN 31 pg (25-35); MEAN CORPUSCULAR HGB CONC 33 g/dL (31-37); MEAN CORPUSCULAR VOLUME 94 fL (79-100); MONO # 0.7 x10^3/uL (0.0-1.1); MONO % 8 % (0-9); NEUT # 4.4 x10^3uL (1.8-7.7); NEUT % 49 % (31-73); PLATELET COUNT 212 x10^3/uL (140-400); RED BLOOD COUNT 4.66 x10^6/uL (4.30-5.70); RED CELL DISTRIBUTION WIDTH 13.7 % (11.5-14.5); WHITE BLOOD COUNT 8.9 x10^3/uL (4.0-11.0)
[2018-06-16 01:30] LABS: BILIRUBIN,URINE NEGATIVE (NEG); CLARITY,URINE CLEAR; COLOR,URINE YELLOW; NITRITE,URINE NEGATIVE (NEG); PROTEIN,URINE NEGATIVE (NEG-TRACE)
[2018-06-16] MEDS ORDERED: IV NORMAL SALINE 1000ML BAG 1,000 ML IV ONE (01:30)
[2018-06-16 01:37] LABS: PROTHROMBIN TIME PATIENT 13.3 SEC (11.7-14.0)
[2018-06-16 01:46] LABS: AMORPHOUS SEDIMENT,UR PRESENT /HPF; BACTERIA,URINE 0 /HPF (0-FEW); SQUAMOUS EPITHELIAL CELL,UR FEW /LPF; WBC,URINE 0 /HPF (0-4)
[2018-06-16 01:52] LABS: CALCIUM 9.3 mg/dL (8.5-10.1); GFR 76.2
[2018-06-16 01:56] LABS: ALBUMIN 3.8 g/dL (3.4-5.0); ALBUMIN/GLOBULIN RATIO 1.1 (1.0-1.7); MAGNESIUM 2.3 mg/dL (1.8-2.4); TOTAL BILIRUBIN 0.5 mg/dL (0.2-1.0); TOTAL PROTEIN 7.4 g/dL (6.4-8.2)
--- NOTE | 2018-06-16 02:04 | PHYS DOC ---
Past Medical History Past Medical History: Seizure, Other Additional Past Medical Histor: epilepsy Past Surgical History: Other Additional Past Surgical Histo: left knee surgery x 2 Alcohol Use: Rarely Drug Use: None Adult General Chief Complaint Chief Complaint: WEAKNESS/GENERALIZED HPI HPI Patient is a 58 year old male who presents to the ED with generalized weakness. He had an episode of this at 10 PM while helping out with friends. He tried to get up but felt a wave of fatigue and dizziness sweep over him. This has happened multiple times in the past and has been getting more frequent as of late. It happened twice yesterday. He cannot notice a pattern with these episodes. Sometimes it is when he is up and moving, sometimes when he is at rest for hours at a time, and sometimes it is when he is standing up. He is currently being worked worked up with a quality assurance monitor final by Dr. Yusuf. He is been having significantly blurred vision progressive for the last 3 weeks and saw the eye doctor, who said that it is likely due to his high sugar levels since he is a newly diagnosed diabetic. Patient does not feel flushed during these episodes. They do not seem to be associated with movement of his head. He does not notice any palpitations or increased heart rate regular episodes. Patient denies chest pain and pain in general. Review of Systems Review of Systems Constitutional: Denies fever or chills [] Eyes: Denies change in visual acuity, redness, or eye pain [] HENT: Denies nasal congestion or sore throat [] Respiratory: Denies cough or shortness of breath [] Cardiovascular: Denies chest pain or palpitations. GI: Denies abdominal pain, nausea, vomiting, bloody stools or diarrhea [] : Denies dysuria or hematuria [] Musculoskeletal: Denies back pain or joint pain [] Integument: Denies rash or skin lesions [] Neurologic: Admits to generalized weakness. Denies headache, focal weakness or sensory changes [] Complete systems were reviewed and found to be within normal limits, except as documented in this note. Current Medications Current Medications Current Medications Medications (Trade) Dose Ordered Sig/Bob Start Time Stop Time Status Last Admin Dose Admin Sodium Chloride 1,000 ml @ 1,000 mls/hr 1X ONCE 06/16/18 01:30 06/16/18 02:29 DC 06/16/18 01:54 1,000 MLS/HR Allergies Allergies Allergies Coded Allergies Type Severity Reaction Last Updated Verified phenobarbital Allergy Intermediate 05/16/18 Yes Physical Exam Physical Exam Constitutional: Well developed, well nourished, no acute distress, non-toxic appearance. [] HENT: Normocephalic, atraumatic, bilateral external ears normal, oropharynx moist, no oral exudates, nose normal. [] Eyes: PERRL, EOMI, conjunctiva normal, no discharge. [] Neck: Normal range of motion, no tenderness, supple, no stridor. [] Cardiovascular: Heart rate regular rhythm, no murmur [] Lungs & Thorax: Bilateral breath sounds clear to auscultation [] Abdomen: Bowel sounds normal, soft, no tenderness Skin: Warm, dry, no erythema, no rash. [] Back: No tenderness, no CVA tenderness. [] Extremities: No tenderness, no cyanosis, no clubbing, ROM intact, no edema. [] Neurologic: Alert and oriented, normal motor function, normal sensory function, no focal deficits noted. Cranial nerves II-X intact. No ataxia [] Psychologic: Affect normal, judgement normal, mood normal. [] Current Patient Data Vital Signs Vital Signs Date Time Temp Pulse Resp B/P (MAP) Pulse Ox O2 Delivery O2 Flow Rate FiO2 06/16/18 02:13 53 18 95 06/16/18 00:50 98.1 124/68 (86) Room Air 98.1 Lab Values Laboratory Tests Test 06/16/18 00:58 06/16/18 01:20 White Blood Count 8.9 x10^3/uL (4.0-11.0) Red Blood Count 4.66 x10^6/uL (4.30-5.70) Hemoglobin 14.6 g/dL (13.0-17.5) Hematocrit 43.8 % (39.0-53.0) Mean Corpuscular Volume 94 fL (79-100) Mean Corpuscular Hemoglobin 31 pg (25-35) Mean Corpuscular Hemoglobin Concent 33 g/dL (31-37) Red Cell Distribution Width 13.7 % (11.5-14.5) Platelet Count 212 x10^3/uL (140-400) Neutrophils (%) (Auto) 49 % (31-73) Lymphocytes (%) (Auto) 42 % (24-48) Monocytes (%) (Auto) 8 % (0-9) Eosinophils (%) (Auto) 1 % (0-3) Basophils (%) (Auto) 1 % (0-3) Neutrophils # (Auto) 4.4 x10^3uL (1.8-7.7) Lymphocytes # (Auto) 3.7 x10^3/uL (1.0-4.8) Monocytes # (Auto) 0.7 x10^3/uL (0.0-1.1) Eosinophils # (Auto) 0.1 x10^3/uL (0.0-0.7) Basophils # (Auto) 0.1 x10^3/uL (0.0-0.2) Prothrombin Time 13.3 SEC (11.7-14.0) Prothrombin Time INR 1.0 (0.8-1.1) PTT 37 SEC (24-38) Sodium Level 140 mmol/L (136-145) Potassium Level 4.0 mmol/L (3.5-5.1) Chloride Level 103 mmol/L (98-107) Carbon Dioxide Level 26 mmol/L (21-32) Anion Gap 11 (6-14) Blood Urea Nitrogen 10 mg/dL (8-26) Creatinine 1.0 mg/dL (0.7-1.3) Estimated GFR (Cockcroft-Gault) 76.2 BUN/Creatinine Ratio 10 (6-20) Glucose Level 135 mg/dL (70-99) H Calcium Level 9.3 mg/dL (8.5-10.1) Magnesium Level 2.3 mg/dL (1.8-2.4) Total Bilirubin 0.5 mg/dL (0.2-1.0) Aspartate Amino Transferase (AST) 17 U/L (15-37) Alanine Aminotransferase (ALT) 23 U/L (16-63) Alkaline Phosphatase 90 U/L (46-116) Creatine Kinase 94 U/L (39-308) Creatine Kinase MB (Mass) 0.8 ng/mL (0.0-3.6) Creatine Kinase MB Relative Index 0.9 % (0-4) Troponin I Quantitative < 0.017 ng/mL (0.000-0.055) Total Protein 7.4 g/dL (6.4-8.2) Albumin 3.8 g/dL (3.4-5.0) Albumin/Globulin Ratio 1.1 (1.0-1.7) Urine Collection Type Unknown Urine Color Yellow Urine Clarity Clear Urine pH 6.0 Urine Specific [place] 1.025 Urine Protein Negative mg/dL (NEG-TRACE) Urine Glucose (UA) Negative mg/dL (NEG) Urine Ketones (Stick) Negative mg/dL (NEG) Urine Blood Negative (NEG) Urine Nitrite Negative (NEG) Urine Bilirubin Negative (NEG) Urine Urobilinogen Dipstick 1.0 mg/dL (0.2 mg/dL) Urine Leukocyte Esterase Negative (NEG) Urine RBC 3-5 /HPF (0-2) Urine WBC 0 /HPF (0-4) Urine Squamous Epithelial Cells Few /LPF Urine Amorphous Sediment Present /HPF Urine Bacteria 0 /HPF (0-FEW) Urine Mucus Mod /LPF Laboratory Tests 06/16/18 00:58 Laboratory Tests 06/16/18 00:58 EKG EKG @0046 Sinus bradycardia at 53bpm, NO ST elevation Radiology/Procedures Radiology/Procedures PROCEDURE: CT HEAD WO CONTRAST CT scan of the head without contrast 06/16/2018 Clinical History: Syncope. Technique: Unenhanced, contiguous, 5 mm axial sections were obtained through the head. One or more of the following individualized dose reduction techniques were utilized for this study: 1. Automated exposure control. 2. Adjustment of the mA and/or kV according to patient size. 3. Use of iterative reconstruction technique. Findings: Comparison study is dated 05/16/2018 There is generalized parenchymal atrophy. Areas of decreased attenuation are seen within the periventricular and subcortical white matter of both cerebral hemispheres consistent with areas of small vessel ischemic disease. No acute parenchymal abnormality is seen. No extra-axial fluid collection is noted. No skull fracture is seen. Impression: No acute intracranial abnormality is seen. Electronically signed by: José Miguel Chandra MD (06/16/2018 2:03 AM) [facility] Course & Med Decision Making Course & Med Decision Making Pertinent Labs and Imaging studies reviewed. (See chart for details) Patient is a 58-year-old male presents to the ED with episodic recurrent generalized weakness. CBC, CMP, troponin, creatine kinase all within normal limits except for blood glucose of 135. CT head showed no acute intracranial process. UA negative for any signs of infection. Patient stable and having no symptoms during his ED visit. Discharging patient to home with plan to follow up with neurologist and bun icer who he is actively seeing for workup of these issues. Patient is agreeable to this plan. Dragon Disclaimer Dragon Disclaimer This electronic medical record was generated, in whole or in part, using a voice recognition dictation system. Departure Departure Impression: Primary Impression: Near syncope Disposition: 01 HOME, SELF-CARE Condition: STABLE Referrals: JOSE CHACON MD (PCP) MIC LEUNG MD, PRASHANTH S MD Patient Instructions: Near-Syncope, [id number] LINDA GOMEZ DO Jun 16, 2018 02:04
[2018-06-16 02:13] VITALS: BP 116/60
--- NOTE | 2018-06-16 04:19 | RAD ---
PA and lateral chest radiographs 06/16/2018 CLINICAL HISTORY: Near syncope. PA and lateral digital radiographs of the chest were obtained. Comparison study is dated 05/16/2018. The cardiac silhouette is normal in size. The thoracic aorta is mildly tortuous. No acute pulmonary infiltrate is seen. No pleural effusion or pneumothorax is noted. Degenerative changes are seen involving the thoracic spine. IMPRESSION: No acute abnormality is seen. Electronically signed by: José Miguel Chandra MD (06/16/2018 4:16 AM) [facility]
--- NOTE | 2018-06-16 05:45 | EKG ---
[facility] [address] [place] [address] Test Date: 2018-06-16 Test Time: 00:46:48 Pat Name: ZOË PERALTA Department: Room: Gender: Male Strategic Partnership Manager: : 1960 Requested By: LINDA GOMEZ Order Number: [id number] Reading MD: David Yusuf MD Measurements Intervals [place] Rate: 52 P: 39 [place]: 152 QRS: 56 QRSD: 94 T: 51 QT: 416 QTc: 392 Interpretive Statements SINUS RHYTHM RBBB Electronically Signed On 06-19-2018 14:12:57 CDT by David Yusuf MD
== END 2018-06-16 02:39 | disposition home or self-care (01) ==
LOC: ER 00:15
DX: R55 Syncope and collapse (principal); R53.1 Weakness; R42 Dizziness and giddiness; R53.83 Other fatigue; H53.8 Other visual disturbances; Z88.8 Allergy status to other drugs, medicaments and biological substances
CPT/HCPCS: 36415; 70450; 71046; 80053; 81001; 82553; 83735; 84484; 85025; 85610; 85730; 93005; 96360; 99284; J7030

== ENCOUNTER → 2018-08-03 | Outpatient (CLI) | payer BC ==
--- NOTE | 2018-08-03 11:19 | KCIC ---
MRI Brain without contrast History: Convulsive epilepsy, stroke a few months ago, headaches, blurred vision, unsteady gait Technique: Multiplanar, multisequential noncontrast MR imaging was performed of the brain. Comparison: None Findings: There is no evidence of recent infarct or cytotoxic edema. Ventricular size is within normal limits. There is mild prominence of biparietal subarachnoid spaces. There is mild T2 and FLAIR hyperintense signal of the posterior left temporal lobe extending near cortical surface, no associated mass effect. There is other scattered very mild T2 and FLAIR hyperintense abnormality of the supratentorial white matter bilaterally. Hippocampal formations are fairly symmetric in size and signal characteristics. There is no significant midline shift, intraaxial mass effect, or focal abnormal extra-axial fluid collection. There is no significant hemosiderin deposition of the brain parenchyma. There is preservation of the major intracranial flow-voids at the skull base. There is minimal patchy fluid right mastoid air cells, minimal thickening on the left.The cerebellar tonsils are normal in location. There is no significant abnormality of the pineal gland or pituitary gland. There is left maxillary sinus mucous retention cyst about 1.7 cm. There is deviation nasal septum to the right. There is patchy mild bilateral ethmoid air cell mucosal thickening. There is left aldair bullosa. There is preserved marrow signal of the clivus. Impression: 1. There is no evidence of recent infarct or intracranial mass effect. Mild T2 and FLAIR hyperintense signal of the posterior left temporal lobe extending near cortical surface is most likely due to sequela of old infarct. Other minimal T2 and FLAIR hyperintense signal of the supratentorial parenchyma is nonspecific, may be due to chronic microvascular ischemic disease. There is mild prominence of the biparietal subarachnoid spaces which may be due to mild involutional change or on developmental basis. Electronically signed by: Diego Sexton MD (08/03/2018 11:17 AM) [facility]
== END | disposition home or self-care (01) ==
LOC: KCIC MRI 09:59
PROVIDERS: ATTEND Psychiatry & Neurology Neurology with Special Qualifications in Child Neurology
DX: G40.309 Generalized idiopathic epilepsy and epileptic syndromes, not intractable, without status epilepticus (principal); J34.1 Cyst and mucocele of nose and nasal sinus; J34.2 Deviated nasal septum; J34.89 Other specified disorders of nose and nasal sinuses
CPT/HCPCS: 70551

== ENCOUNTER → 2018-09-26 | Outpatient (CLI) | payer BC ==
--- NOTE | 2018-09-27 13:06 | EEG ---
DATE OF SERVICE: 09/27/2018 ELECTROENCEPHALOGRAM REPORT DATE OF STUDY: 09/26/2018 - 09/27/2018. OBJECTIVE: The patient is a 58-year-old male with history of convulsive epilepsy, who has been having episodes of depersonalization and multiple other neurological symptoms, rule out seizures. DESCRIPTION: This is a digital study for 24 hours with video EEG monitoring. Bipolar and referential montages are available. Activation procedures typically include hyperventilation and intermittent photic stimulation. INTERPRETATION: The waking background consists of 9-10 Hz, 50-100 microvolt activity, symmetrically distributed over parieto-occipital regions and reactive to eye opening. Hyperventilation and intermittent photic stimulation are noncontributory. All stages of sleep are achieved with normal electroencephalogram patterns. Computer-identified spikes are reviewed and none are anything other than physiologic or artifactual. No seizure-like activity was observed clinically during the recording. IMPRESSION: This 24-hour EEG study with the patient awake and asleep is within normal limits. There is no focal, paroxysmal or epileptiform activity. Thank you for letting us help with the patient's care. MIC LEUNG MD DR: SARAY/elizabeth JOB#: [id number] / [id number] ecc NAME, YOAN RUBI
== END | disposition home or self-care (01) ==
LOC: SLPLAB 05:46
PROVIDERS: ATTEND Psychiatry & Neurology Neurology with Special Qualifications in Child Neurology
DX: G40.309 Generalized idiopathic epilepsy and epileptic syndromes, not intractable, without status epilepticus (principal); E11.9 Type 2 diabetes mellitus without complications; Z86.73 Personal history of transient ischemic attack (TIA), and cerebral infarction without residual deficits
CPT/HCPCS: 95951

== ENCOUNTER → 2018-10-09 | Outpatient (CLI) | payer BC ==
--- NOTE | 2018-10-11 21:36 | SLEEP ---
DATE OF STUDY: 10/10/2018 OBJECTIVE: The patient is a 58-year-old male with excessive somnolence, possible witnessed apnea. [place] sleep score 13. Height 70 inches, weight 182 pounds, body mass index 26.1. The respiratory monitoring shows an apnea-hypopnea index of 5.6 events per hour of sleep. Only 0.1 events per hour of sleep consisted of obstructive apneas, there are some mixed apneas and hypopneas. Total number of events is 41. Minimum oxygen saturation of 78%. Mean heart rate is 52.9. IMPRESSION: Abnormal home polysomnogram showing a slightly increased number of apneas and hypopneas. Note that normal apnea-hypopnea index is 5.6 events per hour of sleep. Also note, though, the minimum oxygen saturation was 78%. RECOMMENDATIONS: The patient will follow up in my clinic for further guidance. Thank you for letting us help with the patient's care. MIC LEUNG MD DR: SARAY/elizabeth JOB#: [id number] / [id number] JOSE Patricia MD
== END | disposition home or self-care (01) ==
LOC: RT 08:14
PROVIDERS: ATTEND Psychiatry & Neurology Neurology with Special Qualifications in Child Neurology
DX: G47.33 Obstructive sleep apnea (adult) (pediatric) (principal); G47.10 Hypersomnia, unspecified
CPT/HCPCS: G0399

== ENCOUNTER → 2019-05-28 | Outpatient (CLI) | payer BC ==
[2019-05-28 15:11] LABS: BASO % 1 % (0-3); EOS # 0.1 x10^3/uL (0.0-0.7); EOS % 1 % (0-3); HEMATOCRIT 44.8 % (39.0-53.0); HEMOGLOBIN 15.4 g/dL (13.0-17.5); LYMPH # 2.6 x10^3/uL (1.0-4.8); LYMPH % 39 % (24-48); MEAN CORPUSCULAR HEMOGLOBIN 32 pg (25-35); MEAN CORPUSCULAR HGB CONC 35 g/dL (31-37); MEAN CORPUSCULAR VOLUME 94 fL (79-100); MONO # 0.6 x10^3/uL (0.0-1.1); MONO % 8 % (0-9); NEUT # 3.4 x10^3/uL (1.8-7.7); NEUT % 51 % (31-73); PLATELET COUNT 225 x10^3/uL (140-400); RED BLOOD COUNT 4.78 x10^6/uL (4.30-5.70); RED CELL DISTRIBUTION WIDTH 13.6 % (11.5-14.5); WHITE BLOOD COUNT 6.6 x10^3/uL (4.0-11.0)
[2019-05-28 15:13] LABS: BILIRUBIN,URINE NEGATIVE (NEG); CLARITY,URINE CLEAR; NITRITE,URINE NEGATIVE (NEG); PH,URINE 6.5; PROTEIN,URINE NEGATIVE (NEG-TRACE); UROBILINOGEN,URINE 0.2 mg/dL (0.2 mg/dL)
[2019-05-28 15:30] LABS: COLOR,URINE STRAW
[2019-05-28 15:31] LABS: BACTERIA,URINE 0 /HPF (0-FEW); RBC,URINE OCC /HPF (0-2); SQUAMOUS EPITHELIAL CELL,UR FEW /LPF; WBC,URINE 0 /HPF (0-4)
[2019-05-28 15:55] LABS: ALBUMIN 4.2 g/dL (3.4-5.0); ALBUMIN/GLOBULIN RATIO 1.2 (1.0-1.7); CREATININE 0.9 mg/dL (0.7-1.3); GFR 85.8; POTASSIUM 3.9 mmol/L (3.5-5.1); TOTAL BILIRUBIN 0.7 mg/dL (0.2-1.0); TOTAL PROTEIN 7.7 g/dL (6.4-8.2)
[2019-05-29 06:13] LABS: HEMOGLOBIN A1C 7.9 % (4.8-5.6)
[2019-05-30 11:10] LABS: PSA FREE 0.12 ng/mL; PSA TOTAL 0.2 ng/mL (0.0-4.0)
== END | disposition home or self-care (01) ==
LOC: LAB 13:37
PROVIDERS: ATTEND Family Medicine
DX: E11.65 Type 2 diabetes mellitus with hyperglycemia (principal); E78.01 Familial hypercholesterolemia; E03.9 Hypothyroidism, unspecified; R35.1 Nocturia; E78.49 Other hyperlipidemia
CPT/HCPCS: 36415; 80053; 80061; 81001; 83036; 84153; 84154; 85025

== ENCOUNTER → 2019-10-18 | Outpatient (CLI) | payer BC ==
--- NOTE | 2019-10-18 17:19 | RAD ---
MR#: [id number] Date of Study: 10/18/2019 Ordering Physician: CHELI GUERRA, Referring Physician: CHELI GUERRA, Tech: APPROVED REPORT Patient Location: OUT-PATIENT Exam Type: Ankle to Brachial Index Indications Numbness/Tingling PAD Risk Factors TIA/CVA History Diabetes Smoking Pressures/Indices RightABI LeftABI Brachial 125aqHh0.9Brachial 473quAt3.9 Ankle(PT) 114mmHgAnkle(PT) 113mmHg Ankle(DP) 131mmHgAnkle(DP) 116mmHg Findings Near normal bilateral YUSEF of 0.9 Critical Notification Critical Value: No Signed by : Cheli Guerra, Electronically Approved : 10/18/2019 17:18:14
--- NOTE | 2019-10-18 17:20 | RAD ---
MR#: [id number] Date of Study: 10/18/2019 Ordering Physician: CHELI GUERRA, Referring Physician: CHELI GUERRA, Tech: APPROVED REPORT Patient Location: OUT-PATIENT Indications PAD Risk Factors TIA/CVA History Diabetes Smoking VELOCITY AND DOPPLER WAVEFORM ANALYSIS RIGHT cm/secWaveformSeverity LEFT cm/secWaveform Severity dCFA 142.0TriphasicdCFA 96.0Biphasic Prof Fem Art. 202.0BiphasicProf Fem Art. 121.0Monophasic Fem Art Prox. 120.0MonophasicFem Art Prox. 91.0Biphasic Fem Art Mid. 108.0MonophasicFem Art Mid. 77.0Biphasic Fem Art Dist. 75.0BiphasicFem Art Dist. 66.0Triphasic Pop Art(Fossa) 45.0MonophasicPop Art(AK) 32.0Monophasic VALVING MACHINE OPERATOR Prox. 78.0MonophasicPTA Prox. 68.0Triphasic VALVING MACHINE OPERATOR Dist. 30.0MonophasicPTA Dist. 71.0Triphasic Per Art Dist.41.0MonophasicPer Art Dist.34.0Biphasic DEON Prox. 155.0MonophasicATA Prox. 66.0Monophasic DPA 52MonophasicDPA 41Biphasic Findings Grayscale images reveal moderate bilateral diffuse atherosclerosis. On the right side there is likely moderate stenosis involving the profunda femoris and likely greater than 50% stenosis involving the anterior tibial artery. Otherwise spectral waveforms and color Dopp ler are not suggestive of any critical stenosis. Velocities are also otherwise not suggestive of any critical stenosis. On the left side there is likely moderate diffuse atherosclerosis without any focal critical stenosis noted. Critical Notification Critical Value: No <Conclusion> 1. Moderate bilateral lower extremity arterial disease without any focal obstruction with three-vess el runoff below the knees bilaterally Signed by : Cheli Guerra, Electronically Approved : 10/18/2019 17:20:09
--- NOTE | 2019-10-18 17:22 | RAD ---
MR#: [id number] Date of Study: 10/18/2019 Ordering Physician: CHELI GUERRA, Referring Physician: CHELI GUERRA, Tech: APPROVED REPORT Patient Location: OUT-PATIENT Laterality:Bilateral Indications Dizziness and Vertigo Unsteady Gait Syncope CVA/TIA: Risk Factors Diabetes, Stroke Smoking Doppler Spectral Velocity Analysis Right Left pCCA 85/17 cm/spCCA 117/23 cm/s mCCA 84/24 cm/smCCA 87/18 cm/s dCCA 68/19 cm/sdCCA 69/18 cm/s ECA 309/ cm/sECA 129/ cm/s pICA 156/63 cm/spICA 99/28 cm/s Sally 157/49 cm/smICA 81/30 cm/s dICA 168/45 cm/sdICA 106/40 cm/s ICA/CCA 1.98ICA/CCA 0.91 Findings There is likely a moderate 50 to 69% stenosis involving the right internal carotid artery. Likely gr eater than 75% stenosis involving the right external carotid artery. Antegrade vertebral velocities are noted bilaterally. No significant obstruction is noted on the left carotid artery with overall 0 to less than 50% stenosis based on velocity criteria. There is moderate to heavy calcific burden at the bilateral carotid bulbs on grayscale images. Critical Notification Critical Value: No <Conclusion> 1. Moderate right-sided internal carotid arterial disease with moderate bilateral plaque burden at t he level of the carotid bulbs. Signed by : Cheli Guerra, Electronically Approved : 10/18/2019 17:22:28
== END | disposition home or self-care (01) ==
LOC: US 14:30
PROVIDERS: ATTEND Internal Medicine Cardiovascular Disease
DX: I65.23 Occlusion and stenosis of bilateral carotid arteries (principal); I73.9 Peripheral vascular disease, unspecified
CPT/HCPCS: 93880; 93922; 93925

== ENCOUNTER → 2020-09-01 | Outpatient (CLI) | payer BC ==
[~2020-09-01] MED LIST changes: -ASPI-612 PO; +ASPI-886 PO; +CONTRAST GIVEN. MC PRN; +IOHEXOL 300 MG/ML 100ML VIAL. IV ONE
--- NOTE | 2020-09-01 09:15 | RAD ---
EXAMINATION: CTA HEAD AND NECK W/WO CONTRAST INDICATION:60 years, Male, evaluate for carotid artery stenosis. TECHNIQUE: Noncontrast head CT was performed in correlation with this exam. After bolus of intravenou s contrast, volumetric CT data acquisition was acquired of the head and neck. Multiplanar reconstruct ion images to include MIP and 3-D reconstruction images are submitted. Exposure: One or more of the following individualized dose reduction techniques were utilized for thi s examination: 1. Automated exposure control 2. Adjustment of the mA and/or kV according to patient size 3. Use of iterative reconstruction technique. COMPARISON: None FINDINGS: Any determination of stenosis is based on NASCET criteria. Noncontrast CT head: No intracranial hemorrhage. No mass effect. No hydrocephalus. Extra-axial spaces are unremarkable. Imaged orbits are unremarkable. Imaged paranasal sinuses and mastoid air cells are clear. Head CTA: ICA: Atherosclerotic calcifications in the cavernous and supraclinoid ICAs without significant stenos is. No occlusion or aneurysm. MCA: No stenosis, occlusion or aneurysm. ABRAHAN: No stenosis, occlusion or aneurysm. DIRECTOR OF PATIENT SAFETY: No stenosis, occlusion or aneurysm. Basilar artery: No stenosis, occlusion or aneurysm. Distal vertebral arteries: No stenosis, occlusion or aneurysm. CT angiogram neck: Aortic arch: Classic type aortic arch. Common carotid arteries: No stenosis, occlusion or dissection. Internal carotid arteries: There is atherosclerotic calcification of the proximal right internal diana tid artery, causing approximately 56 % stenosis. Mild atherosclerotic calcification of the proximal l eft internal carotid artery without significant luminal narrowing. External carotid arteries: Patent Vertebral arteries: No stenosis, occlusion or dissection. Imaged lung apices demonstrate mild centrilobular pulmonary emphysema. Soft tissues appear normal. L arge retention cyst in the left maxillary sinus. Bones: No pathologic osseous lesions. Multilevel degenerative changes in the spine, worst at C5-6 and C6-7. Dystrophic calcifications in the posterior neck soft tissue. IMPRESSION: 1. No arterial stenosis or occlusion within the head. 2. Dense atherosclerotic calcifications of the proximal right internal carotid artery, causing great er than 50 % luminal stenosis. Electronically signed by: Sal Greenberg MD (09/01/2020 9:12 AM) [id number]
== END ==
LOC: CT 09:59
PROVIDERS: ATTEND Internal Medicine Cardiovascular Disease
DX: I65.21 Occlusion and stenosis of right carotid artery (principal); J43.2 Centrilobular emphysema
CPT/HCPCS: 70496; 70498; Q9967